=== PATIENT | female | born 1945 | race Caucasian/White ===

== ENCOUNTER 2023-12-28 19:42 | Inpatient (IN) | payer MEDICARE, BC, SELFPAY ==
[2023-12-28] VITALS (24 sets, daily range): BP systolic 65–180; BP diastolic 27–117
--- NOTE | 2023-12-28 18:51 | ED.CVA ---
History of Present Illness
General
Chief Complaint: CVA/TIA Symptoms
Time Seen by Provider: 12/28/23 18:50
Onset of Stroke Symptoms
Onset of symptoms known: Yes
Date of onset of symptoms: 12/28/23
Time of onset of symptoms: 18:10
Time pt last seen normal is known: Yes
Date last time pt seen normal: 12/28/23
Time last time pt seen normal: 18:00
History of Present Illness
History of Present Illness:
HPI: I spoke to EMS for history. At around 6:10 PM today while at some social function, the patient had a major change in mental status. There is concern for stroke. EMS was called and called a prehospital stroke alert.
EXAM:
GENERAL: The patient is critically ill in appearance
HEENT: Moist oral mucosa
CARDIOVASCULAR: No murmurs, normal heart rate, regular rhythm, No chest wall tenderness
PULMONARY: No respiratory distress, breath sounds are clear and equal
ABDOMEN: Soft with no peritoneal signs, no tenderness
NEUROLOGIC: Dense paresis on the right, does not follow any commands, has a leftward gaze preference, nonverbal, responds to pain
PSYCHIATRIC: The patient is nonverbal, eyes are slightly open, nonverbal
EXTREMITIES: No obvious deformity
SKIN: No rash, no lesions
TIME OF INITIAL ENCOUNTER: 6:52 PM
NUMBER AND COMPLEXITY OF PROBLEMS ADDRESSED AT THE ENCOUNTER
� Chronic conditions affecting care: Spinal stenosis, hyperlipidemia, diabetes
� Acute Exacerbation and/or Progression of Chronic Illness: This is an acute problem
� Differential Diagnosis includes: Acute ischemic CVA, hemorrhagic CVA
AMOUNT AND/OR COMPLEXITY OF DATA TO BE REVIEWED AND ANALYZED
� I performed an independent evaluation of and my interpretation is:
EKG: Sinus 56, no acute ST abnormality
CT: Noncontrast brain CT negative for bleed per Dr. Ivan
X-rays:
Laboratory Studies: White count 10.9, hemoglobin 13.6, fingerstick blood sugar 156, creatinine elevated at 1.5
Other:
� Review of other/old records: I reviewed records, the patient was here in 2018 after syncopal event with relatively unremarkable blood work, old records show that the patient has not been admitted to [facility] in the
past
� Clinical information was obtained by an independent historian: I spoke to EMS
� Prescriptions/Medications Considered but not given:
� Further testing considered but not performed:
RISK OF COMPLICATIONS AND/OR MORBIDITY OR MORTALITY OF PATIENT MANAGEMENT
� Social determinants of health affecting care: Apparently lives at home
� Discussion with other providers: Discussed with Dr. Montano over the phone at about 7:05 PM�we agreed to proceed with TNK; Dr. Rios for admission
� Escalation of care including admission/observation vs risk of discharge considered: The patient was seen as a stroke alert and immediately went to CT after brief evaluation. Initial NIHSS equals 20. Blood pressure was
markedly hypotensive while in CT with systolics in the 60s to 70s range. IV fluids were started. Repeat systolics around 100 as of 7:15 PM. Repeat neurologic examination unchanged. Reassessment at 7:20 PM, she was able to utter 'okay' very
softly and she seemed to have some movement to the toes on the right which is new compared to arrival. However dense deficits still persist. Planning TNK�nurse about to give as of 7:20 PM.
Past History
Past History
ED Past Medical History: HTN, Hypercholesterolemia, NIDDM and Other (colitis)
ED Past Surgical History: Cholecystectomy and
Social History
Tobacco: Non-smoker
Phy Exam
Physical Exam
Physical Exam:
See HPI
Scores
NIH Stroke Score
Level of Consciousness: 2 - Obtunded
LOC Questions: 2-Neither correct
LOC Commands: 2-Performs neither correctly
Best Horizontal Gaze: 2-Total gaze palsy
Visual Bacon: 0=Normal, no visual loss
Facial Palsy: 1=Minor paralysis
Motor - Right Arm: 4=No movement
Motor - Left Arm: 0=No drift 10 seconds
Motor - Right Le-No movement
Motor - Left Le-No drift 5 seconds
Limb Ataxia: 0-Absent
Sensation: 0-Normal
Best Language: 3-Mute/global aphasia
Dysarthria: 0-Normal
Extinction and Inattention: 0-No abnormality
Total Score:: 20
Course
Orders/Labs/Results
Orders:
Orders
12/28/23 18:48
CT Head/Neck Ang STROKE ALERT Urgent
Comment:
Reason For Exam: stroke/tia
12/28/23 18:49
CT Head W/o Cont STROKE ALERT Urgent
Comment:
Reason For Exam: stroke
12/28/23 18:51
Electrocardiogram (*1) Urgent
Reason for Study: TIA/Stroke
EKG- Treatment ONCE
12/28/23 18:54
CBC/With Diff [Complete Blood Count/With Diff] Urgent
Comprehensive Metabolic Panel Urgent
Protime/PTT Urgent
12/28/23 19:00
0.9% Sodium Chloride 1000 ml [Nss] 1,000 ml IV BOLUS
12/28/23 19:09
Tenecteplase [Tnkase] 18 mg Syringe [Syringe Non-Pump] 0 ml IV NOW
Provider explained risk/benefits to patient &/or: Other
caregiver?:
Comment: I attempted to call listed contact however there is no
answer. Patient cannot comprehend what is going on
right now. Implied emergent consent.
Blood pressure: 115/68
Abnormal Lab Results
12/28/23 12/28/23
18:50 18:54
WBC 10.9 H 10^3/uL
(4.8-10.8)
Absolute Neuts (auto) 7.0 H 10^3/uL
(1.4-6.5)
Absolute Monos (auto) 0.9 H 10^3/uL
(0.1-0.6)
Carbon Dioxide 21 L mmol/L
(22-30)
BUN 28 H mg/dl
(7-17)
Creatinine 1.5 H mg/dL
(0.6-1.0)
Glucose 148 H mg/dl
(70-99)
POC Glucose 156 H mg/dl
(70-99)
12/28/23 18:54
12/28/23 18:54
Vital Signs
Initial and Last Documented VS:
Initial Vital Signs
Pulse Resp BP Pulse Ox
61 20 115/68 89
12/28/23 18:51 12/28/23 18:51 12/28/23 18:51 12/28/23 18:51
Last Documented Vital Signs
Temp Pulse Resp BP Pulse Ox
98.8 F 67 18 100/40 97
12/28/23 19:10 12/28/23 19:10 12/28/23 19:10 12/28/23 19:13 12/28/23 19:13
*Critical Care Note
Total Time (30-74mins, 75-104mins- exclusive of procedures): 45 minutes
comment:
Patient was emergently assessed neurologically multiple times and decision was made to give TNK. I tried to call family but there was no answer. I spoke to EMS. I spoke to radiology. I spoke to neurology. There has been some slight improvement
just prior to TNK administration.
ED Attending Note
-
Portions of this chart may have been created with voice recognition software.� Occasional wrong word or��sound alike� substitutions may have occurred due to the inherent limitations of voice recognition software.
Discharge Plan
Departure
Patient Disposition: Admit
Date of Disposition: 12/28/23
Time of Disposition: 19:16
Presentation/result/management discussed w/ accepting MD/DO: Hospitalist
Discharge Problem:
Acute CVA (cerebrovascular accident)
Prescriptions:
No Action
metformin 500 MG tablet
500 mg PO BID
atorvastatin 10 MG tablet
10 mg PO QPM
lisinopril 20 MG tablet
20 mg PO DAILY
famotidine 20 MG tablet
40 mg PO DAILY
escitalopram oxalate 10 MG tablet
10 mg PO DAILY
Referrals:
UNKNOWN - PT NOT,INTERVIEWE [Family Provider] -
Interventions
Interventions:
*Risk Screen - Suicide Last Done: 12/28/23 19:15
*General Assessment Last Done: 12/28/23 19:14
*Neglect/Abuse Screening Last Done: 12/28/23 19:15
ED- Fall Risk Assessment Last Done: 12/28/23 19:10
*ED COVID-19 Vaccine History Last Done: 12/28/23 19:14
ED- Pulmonary Assessment Last Done: 12/28/23 19:10
ED- Neurological Assessment Last Done: 12/28/23 18:46
ED- Cardiac Assessment Last Done: 12/28/23 19:04
Discharge Date and Time
Print Language: LEBANESE
[2023-12-28 18:52] LABS: Glucose - Point of Care 156 mg/dl (70-99)
[2023-12-28 18:57] LABS: % Basophils 0.5 % (0-2); % Eosinophils 1.4 % (0-6); % Immature Granulocytes 0.3 % (0-0.5); % Lymphocytes 25.7 % (20.5-51.1); % Monocytes 8.4 % (1.7-9.3); % Neutrophils 63.7 % (42.2-75.2); Absolute Basophils 0.1 10^3/uL (0-0.2); Absolute Eosinophils 0.2 10^3/uL (0-0.7); Absolute Lymphocytes 2.8 10^3/uL (1.2-3.4); Absolute Monocytes 0.9 10^3/uL (0.1-0.6); Hematocrit 39.2 % (37.0-47.0); Hemoglobin 13.6 g/dL (12.0-16.0); Mean Corp Hgb Conc. 34.7 g/dL (33.0-37.0); Mean Corpuscular Hgb 30.4 pg (27.0-31.0); Mean Corpuscular Volume 87.7 fL (81.0-99.0); Mean Platelet Volume 9.2 fL (7.4-10.4); Nucleated Red Blood Cells % 0 %; Platelet Count 240 10^3/uL (130-400); Red Blood Cell Count 4.47 10^6/uL (4.20-5.40); Red Cell Dist. Width 12.3 % (11.5-14.5); White Blood Cell Count 10.9 10^3/uL (4.8-10.8)
[2023-12-28 19:07] LABS: INR 1.01; PT 13.1 Sec (11.4-14.6)
[2023-12-28 19:12] LABS: ALT (SGPT) 14 U/L (0-35); AST (SGOT) 23 U/L (14-36); Albumin 4.5 g/dl (3.5-5.0); Alkaline Phosphatase 81 U/L (38-126); Blood Urea Nitrogen 28 mg/dl (7-17); Calcium 10.2 mg/dl (8.4-10.2); Carbon Dioxide 21 mmol/L (22-30); Chloride 107 mmol/L (98-107); Glucose 148 mg/dl (70-99); Potassium 4.8 mmol/L (3.5-5.1); Sodium 135 mmol/L (135-145); Total Bilirubin 0.6 mg/dl (0.2-1.3); Total Protein 7.6 g/dl (6.3-8.2); eGFR 35.89
[2023-12-28] MEDS: TNKASE 3.60000000000000009 MG IV (19:19)
[2023-12-28] MEDS: NSS 1000 IV (19:20)
--- NOTE | 2023-12-28 19:20 | PHANOTE ---
Med Rec Note:
Family unable to be reached by provider, Home med list compiled from Dr Carvalho. Home med list left unconfirmed.
--- NOTE | 2023-12-28 19:31 | HPS.HSE ---
Addendum entered and electronically signed by Rodney Paez MD 12/28/23 23:27:
Patient condition discussed with cardiovascular team and Dr. Tong after the cath and intervention, attempted angioplasty eventually but open the left common carotid artery unable to stenting, also he mentioned she vomited few times, will monitor
for development aspiration pneumonia get a chest x-ray in the morning will hold off antibiotic as she develops symptoms of chest x-ray show evidence of infection
Closely monitoring for any further aspiration.
Original Note:
Family Physician
-
Family Physician: INTERVIEWE UNKNOWN - PT NOT
Chief Complaint
-
Mental status change
History of Present Illness
76-year-old female with history of diabetes and hypertension, dyslipidemia 47-year-old community independently prior to this, she was in the event for a community
Quite collapsed and became less responsive, EMS called and brought to the hospital where she was minimally responsive on ER eval noted she has a weakness in the right extremity, had a stat CT head did not show abnormality TNK was given per
recommendation of neurology with the ER physician, CTA head showed complete occlusion of the left internal carotid artery, intervention team contacted Dr. Tong came in and, initially ER tried to reassure the family nobody was answering but to son
came in and and they were fully informed about the patient condition and findings.
Patient given tPA 8 look like she is more awake and alert but still does not follows command and nonverbal look like she comprehending some of the discussion,
If you try to hold her like for she will keep it going
Look like the weakness in the right leg is much better, initial NIH score in the ER was around 20, get some improvement on weakness of the right leg and there is overall some improvement in her NIH score, she can be taken to [facility] for evaluation
of the complete occlusion of the left common carotid artery.
Medical History
Past Medical History
Past Medical History: Reports Other
Additional Past Medical History:
Past medical history Reviewed:
Hypertension
Diabetes
Dyslipidemia
Social history: Lives independently alone, no smoking alcohol use according to the son
Family history: Father had a stroke with history of diabetes and hypertension.
Past Surgical History: Reports Other
Social History
Tobacco: Other
Family History
Family History: Other
Allergies / Home Medications
Allergies reflects when Allergies were last updated in [facility].
Home Medications with original date entered in [facility]
Allergy/Medication List:
Allergies
Allergy/AdvReac Type Severity Reaction Status Date / Time
adhesive tape Allergy Unknown Rash Verified 01/14/18 19:57
ibuprofen Allergy Rash Verified 01/14/18 19:57
Penicillins Allergy Rash Verified 01/14/18 19:57
oxycodone [From Percocet] AdvReac Unknown Verified 01/14/18 19:57
food and environmental Allergy Unknown Uncoded 01/14/18 19:57
Home Medications
atorvastatin 10 mg tablet 10 mg PO QPM 01/14/18
escitalopram oxalate 10 mg tablet 10 mg PO DAILY 01/14/18
famotidine 20 mg tablet 40 mg PO DAILY 01/14/18
lisinopril 20 mg tablet 20 mg PO DAILY 01/14/18
metformin 500 mg tablet 500 mg PO BID 01/14/18
Review of Systems
-
Unable to obtain full review of systems at this time due to: Acuity
Physical Exam
Vital Signs
Vital Signs
Temp Pulse Resp BP Pulse Ox
98.8 F 67 18 100/40 97
12/28/23 19:10 12/28/23 19:10 12/28/23 19:10 12/28/23 19:13 12/28/23 19:13
Physical exam:
General: On my eval awake and alert, not responding to commands eyes open but attentive to verbal stimuli, , not in distress .
HEENT: No active discharge, ecchymosis or bruising, moist lips, tongue and mucous membrane.
Eyes: No discharge or red conjunctiva, no nystagmus, pupils are reactive and equal
Neck:Supple, no JVD no bruit no goiter.
Respiratory: Normal AP contour and diameter, normal chest wall movement, normal respiratory effort, no respiratory distress,
Lungs: Good air entry bilaterally, no wheezing or rhonchi, no rales or crackles
Heart: S1, S2 regular, normal rate, no added sound.
Gastrointestinal: Positive bowel sounds, soft, nontender, no guarding or rigidity or organomegaly
Musculoskeletal: , no chest wall abnormality or tenderness. no muscle tenderness or any joint swelling or tenderness.
Extremities: No pitting edema, good peripheral pulses, good range of motion
Skin: Warm and dry, no ulceration, normal color.
Neurological: Awake and alert, not responding comprehending command, good muscle tone and having some resistent right upper extremity with able to keep right lower extremity against gravity, same in the left extremity but she cannot follow recommend
have to lift it up for her, no facial droop, nonverbal, initial NIH score was 20 in the ER, clearly better on eval in ICU
Physical Exam
General: Other
Laboratory Results
-
12/28/23 18:54
12/28/23 18:54
Laboratory Results
PT 13.1 Sec (11.4-14.6) 12/28/23 18:54
INR 1.01 12/28/23 18:54
APTT 25.0 Sec (23.4-35.0) 12/28/23 18:54
Total Bilirubin 0.6 mg/dl (0.2-1.3) 12/28/23 18:54
AST 23 U/L (14-36) 12/28/23 18:54
ALT 14 U/L (0-35) 12/28/23 18:54
Alkaline Phosphatase 81 U/L (38-126) 12/28/23 18:54
EKG: Showed sinus bradycardia, rate around 56, MO 196, QTc 447 otherwise no acute abnormalities. Next
CT brain:
1. No definite acute process. No acute hemorrhage.
2. Mild decrease in attenuation in the deep and periventricular white matter. This may be slightly asymmetric on the left, nonspecific. MRI would be much more sensitive in this regard.
Head and neck CTA:
Significant vascular calcification of the aortic arch, significant vascular calcification at the carotid bifurcation bilaterally. There is no aortic dissection.
On the left there is occlusion of the left ICA at the bifurcation.
On the right there is at least 65% stenosis of the origin of the right ICA.
Minimal reconstitution of the left ICA at the cavernous sinus. Diminutive but present contrast enhancement of the proximal left MCA. Distal MCA is patent. No stenosis or filling defect identified in the left MCA.
The A1 segment is absent on the left. Patent anterior communicating artery. Patent bilateral KAYLEIGH, right MCA and bilateral CANDY DEPARTMENT MANAGER.
Data Reviewed
-
CT Scan: Image Personally Visualized and interpreted, Discussed with Physician, Discussed with Nurse and Discussed with Family
Medical Tests (Nuc Med, Echo, EKG etc): Image Personally Visualized and interpreted, Discussed with Physician and Discussed with Family
Lab Data: Labs Reviewed by me, Discussed with Physician, Discussed with Nurse and Discussed with Family
Old Records: Reviewed
Impression/Plan
-
IMPRESSION:
78-year-old female with history of hypertension, diabetes and dyslipidemia, brought in for evaluation of the sudden mental status change and weakness of the right side, concern for stroke specially with occlusion of the left common internal carotid
artery, cardiac TNK and on her way to the [facility] for evaluation of left, coronary artery occlusion.
Mental status change
Right-sided weakness
Acute stroke
Occlusion of the right, coronary artery
Diabetes
Hypertension
Dyslipidemia.
PLAN:
Status post TNK, follow the TNK protocol
Keep n.p.o. for now
IV fluid
Plan to go to [facility]
Need repeat imaging including MRI of brain when she is more stable with an event change, likely tomorrow
Check lipid panel, A1c
CBC and BMP
Glucose scan
Neurocheck
Hold all p.o. medication for now
Keep blood pressure on the high side
All discussed with the sons
Discussed with neurology, quiller operator nurses and IN STORE DEMONSTRATOR's
CODE STATUS was discussed with the 2 son they expressed her wish in the past she wanted no resuscitation Jeannine ever had a cardiac or pulmonary arrest
DVT prophylaxis for now SCD
--- NOTE | 2023-12-28 19:54 | CON.NEURO ---
Addendum entered and electronically signed by Shiva Montano MD 12/28/23 22:27:
IAT completed with result of successful opening and stenting of the L ICA.
The right ECA is absent.
Patient now able to produce some words and phrases. Unable to report location, own medical condition.
Spontaneously moves all ext.
Will follow.
Original Note:
Neuro Assessment/Plan
Assessment
Abrupt onset of acute ischemic stroke
Most likely due to left internal carotid artery occlusion
Plan
Recommendations:
� administer IV Tenecteplase (TNK) per protocol urgently while keeping patient's blood pressure to a goal of systolic less than 185 and diastolic less than 110 mmHg during infusion of TNK
� place the patient in medical ICU
� goal blood pressure over the next 24 hours would be less than 180/105 mmHg
� check MRI of the brain within 22-32 hours of TNK without contrast for localization of the stroke
� hold all antiplatelets, OAC meds, DOAC meds, heparinoids for next 24 hours
� check lipid panel and hemoglobin A1c
� start atorvastatin 80 mg at bedtime when patient is able to take PO
� goal blood glucose levels for patient would be less than 180 mg/dL
� Speech, PT, OT evaluations needed
� Physiatry consultation warranted
� DVT prophylaxis with sequential compression devices over next 24 hours, can be started on Enoxaparin subcutaneous for DVT prophylaxis beginning 24 hours after TNK provision.
� medical educational materials will be provided
patient candidate for intra-arterial thrombectomy based on L ICA occlusion seen by CT-angiogram
Total Critical Care Time= 120 minutes.
The neurological system is affected and the action required by me to prevent further deterioration or potential was control over the item listed first in the Impressions and Recommendations section of this note.
I was present and personally examined the patient. I discussed patient care with other professional health care providers.
Also discussed with family.
We will follow.
Consultation
Order
Date of Consultation: 12/28/23
Requesting Provider: ED Physician
Reason for Consult: Stroke Alert
Subjective/Objective
Subjective Data
Date of Service: December 28, 2023
Objective Data
Vital Signs
Temp Pulse Resp BP Pulse Ox
37.1 C 67 18 100/40 97
12/28/23 19:10 12/28/23 19:10 12/28/23 19:10 12/28/23 19:13 12/28/23 19:13
Lab Results
12/28/23 18:54
12/28/23 18:54
PT 13.1 Sec (11.4-14.6) 12/28/23 18:54
INR 1.01 12/28/23 18:54
APTT 25.0 Sec (23.4-35.0) 12/28/23 18:54
Sodium 135 mmol/L (135-145) 12/28/23 18:54
Potassium 4.8 mmol/L (3.5-5.1) 12/28/23 18:54
BUN 28 mg/dl (7-17) H 12/28/23 18:54
Glucose 148 mg/dl (70-99) H 12/28/23 18:54
Calcium 10.2 mg/dl (8.4-10.2) 12/28/23 18:54
Patient Allergies
adhesive tape Allergy (Unknown, Verified 01/14/18 19:57)
Rash
ibuprofen Allergy (Verified 01/14/18 19:57)
Rash
Penicillins Allergy (Verified 01/14/18 19:57)
Rash
oxycodone [From Percocet] Adverse Reaction (Verified 01/14/18 19:57)
Unknown
food and environmental Allergy (Uncoded 01/14/18 19:57)
Unknown
CVA Assessment
Onset of Stroke Symptoms
Date of onset of symptoms: 12/28/23
Time of onset of symptoms: 18:10
Time pt last seen normal is known: Yes
Date last time pt seen normal: 12/28/23
Time last time pt seen normal: 18:10
NIH Stroke Score
Level of Consciousness: 1 - Arousable
LOC Questions: 2-Neither correct
LOC Commands: 1-Performs one correctly
Best Horizontal Gaze: 0-Normal
Visual Bacon: 0=Normal, no visual loss
Facial Palsy: 0=Normal, symmetrical
Motor - Right Arm: 2=Partial vs. gravity
Motor - Left Arm: 0=No drift 10 seconds
Motor - Right Le-No drift 5 seconds
Motor - Left Le-No drift 5 seconds
Limb Ataxia: 0-Absent
Sensation: 0-Normal
Best Language: 2-Severe aphasia
Dysarthria: 0-Normal
Extinction and Inattention: 0-No abnormality
Total Score:: 8
Tenecteplase Contraindications
Inclusion and Exclusion criteria reviewed: Yes
Review of Systems
-
Unable to obtain full review of systems at this time due to: Aphasia
History Source: Patient
All other systems: Reviewed and negative
Physical Exam
-
General: No Apparent Distress and Appears Stated Age
Eyes: Round OU, [place] Conjunctivae and No Ptosis
HEENT: Anicteric and Moist Mucous Membranes
Neck: Full Range of Motion
Respiratory: No Dyspnea
Cardiac: No JVD
GI: Non-distended
Skin: Unremarkable
Extremities: No Clubbing, No Cyanosis and No Edema
Psych: Unable to Assess
Extended Neurological Exam
Mood & Affect: Unable to Assess
Attention Span & Concentration: Awake, Alert, Interactive, Unable to Perform 2 Step Request and Other (severe difficulty with 1-step requests, doesn't perform 50% of 1-step requests)
Memory: Unable to Assess
Tremor: Hand Tremor Absent and Head Tremor Absent
Involuntary Movement: None
Speech: Mute
Cranial Nerve II: Left Eye: Pupillary Reactivity Unremarkable, Pupillary Size Unremarkable and Visual Bacon Grossly Intact
Cranial Nerve II: Right Eye: Pupillary Reactivity Unremarkable, Pupillary Size Unremarkable and Visual Bacon Grossly Intact
Cranial Nerves III, IV, : Extraocular Movement: Grossly Intact and Other (no gaze preference)
Cranial Nerve VII: Facial Symmetry: Reduced (questionably on the right)
Cranial Nerve VIII: Hearing: Unremarkable Hearing to Normal Conversational Volume
Cranial Nerves IX, X: Palate Movement: Unable to Assess
Cranial Nerve XI: Shoulder Shrug: Unremarkable
Cranial Nerve XII: Tongue Protusion: Unable to Assess
Muscle Bulk & Tone: Bulk Unremarkable and Increased Tone (RUE proximally)
Deep Tendon Reflexes: Unremarkable Throughout
Cold Sensation: Unable to Assess
Vibration Sensation: Unable to Assess
Touch Sensation: Unremarkable
Coordination: Unable to Assess
Babinski Sign: Absent Bilaterally
Gait & Station: Unable to Assess
Data Reviewed
-
CT-A: Report Reviewed and Image Reviewed
CT Head: Image Reviewed
Labs: Report Reviewed
Reviewed with: Physician, Nurse and Family
Old Records: Summarized
Medications
-
Home Medications
�Medication �Instructions �Recorded
atorvastatin 10 mg tablet 10 mg PO QPM 01/14/18
escitalopram oxalate 10 mg tablet 10 mg PO DAILY 01/14/18
famotidine 20 mg tablet 40 mg PO DAILY 01/14/18
lisinopril 20 mg tablet 20 mg PO DAILY 01/14/18
metformin 500 mg tablet 500 mg PO BID 01/14/18
Past History
Past History
ED Past Medical History: CVA, HTN, Hypercholesterolemia, NIDDM, Psychiatric and Other (colitis)
ED Past Surgical History: Cholecystectomy, and Orthopedic (cervical fusion)
Social History
Tobacco: Non-smoker
--- NOTE | 2023-12-28 20:48 | PTCARENOTE ---
Addendum entered by Alison Martinez RN 12/28/23 21:01:
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
Original Note:
Received patient from ED RN, NIHSS completed together at bedside, score was 14. Neurologist, hospitalist and wind farm engineer all at bedside, spoke with patients family and decided on a IAT at this time. Pt was transferred downstairs via bed to cath
lab, VSS, BP elevated at that time. No signs of bleeding at this time. pt appeared comfortable.
[2023-12-28 20:54] LABS: ACT-LR - POC 189 Seconds (116-155)
[2023-12-28 21:02] LABS: ACT-LR - POC 181 Seconds (116-155)
[2023-12-28 21:11] LABS: ACT-LR - POC 186 Seconds (116-155)
[2023-12-28 21:20] LABS: ACT-LR - POC 256 Seconds (116-155)
[2023-12-28 21:36] LABS: Erythrocyte Sed Rate 20 mm/hour (0-20)
[2023-12-28 21:40] LABS: ACT-LR - POC 265 Seconds (116-155)
[2023-12-28 21:42] LABS: HDL Cholesterol 41 mg/dl; LDL Cholesterol, Calculated 57 mg/dl; Total Cholesterol 125 mg/dl (50-199); Triglyceride 136 mg/dl (10-149); Very Low Density Lipoprotein 27 mg/dl (0-30)
[2023-12-28 22:14] LABS: TSH Reflex To Free T4 3.42 uIU/ml (0.47-4.68)
--- NOTE | 2023-12-28 22:29 | ITS.CL.CA ---
[facility] - Carotid Angiography
Carotid Angiography
Procedure Report:
CAROTID ANGIOGRAPHY AND CAROTID STENT REPORT
Date: December 28, 2023
Referring: Dr. Shiva Montano
INDICATIONS: This is a 78-year-old female with a past medical history notable for diabetes, hypertension, and hyperlipidemia. She lives independently in a [place]-year-old and above community and was at an event earlier this evening when she experienced
sudden loss of consciousness collapsing to the floor. EMS brought her to [facility] where a stat CT scan was performed. She was noted to have right hemiparesis and TNK was administered at the recommendation of neurology. CT angiography
was notable for complete occlusion and heavy calcification of the left internal carotid artery and at least moderate right internal carotid artery stenosis. The angiograms were reviewed with radiology and it appeared that the left MCA was filling
via collaterals. Given the sudden onset of symptoms and dense hemiparesis and aphasia the decision was made to refer for emergent angiography and possible carotid intervention.
PROCEDURE:
1. Ultrasound-guided right common femoral arterial access with placement of a 5 Singaporean arterial sheath
2. Right common carotid angiography and intracerebral angiography from the right common carotid
3. Left common carotid angiography
4. Successful stenting of the proximal left internal carotid artery using a 9 x 30 mm Precise stent that was postdilated with a 5 mm noncompliant balloon
PROCEDURAL DETAILS: Arterial access was obtained using ultrasound guidance. A significant amount of plaque was seen in the common femoral/profundus/SFA. A 5 Singaporean sheath was inserted. Angiography revealed appropriate positioning of the
arteriotomy for upsizing to a 7 Singaporean sheath if needed. A 5 Singaporean VTK catheter was advanced over a J-wire and cannulated the right common carotid artery.
RIGHT CAROTID ARTERY: The right common carotid artery was found to be widely patent. The carotid bulb/bifurcation was found to be heavily calcified with at least a 50-60% stenosis in the proximal right internal carotid artery involving the carotid
artery. The right external carotid artery was felt to be occluded. The intracerebral portion of the right internal carotid artery was patent terminating in the KAYLEIGH and MCA. Faint collaterals were noted to fill the left MCA
LEFT CAROTID ARTERY: The left common carotid artery was selectively cannulated with an CATHERINE catheter. Angiography of the left common carotid artery demonstrated the proximal and mid vessel were widely patent, however, there was a heavily calcified
eccentric high-grade distal common carotid stenosis involving the carotid bifurcation and origin of the external carotid artery. The left internal carotid artery was found to be 100% occluded at its origin.
LEFT CAROTID ARTERY STENT: Intravenous heparin was administered judiciously in order to keep an ACT around 250 seconds. A 0.035 inch hydrophilic Splashwire was advanced into the external carotid artery and the CATHERINE catheter was advanced distally
into the common carotid artery. A 0.035 inch Supra Core wire was then advanced through the CATHERINE catheter which was removed over the supportive wire. The 5 [place]an right common femoral sheath was removed and exchanged for a 7 Singaporean Shuttle sheath
which was advanced to the distal left common carotid artery.
A 0.014 inch BMW guidewire was advanced through the shuttle sheath and was advanced across the high-grade calcific stenosis in the proximal internal carotid artery and the tip of the wire was advanced to the horizontal C2-C3 segment. We attempted
to place a 6 mm SpiderEZ filter wire into the ICA for distal protection during stent deployment. Unfortunately, the Spider Filter would not cross the residual heavily calcified stenosis in the proximal internal carotid artery. The decision was
made to proceed with predilation using a 1.5 mm Euphora balloon. Even the small Euphora balloon encountered difficulty trying to cross the stenotic segment. The 1.5 mm Euphora balloon crossed with a significant degree of difficulty and ruptured
during balloon inflation. The Spider-EZ Filter would still not cross. Serial balloon dilations of the distal common carotid/proximal internal carotid stenosis were performed using 2.5 x 20 mm Trek and a 3.0 x 20 mm NC Euphora balloons.
Ultimately, we are able to advance the Spider-EZ Filter wire distally. The BMW wire was removed and the filter basket deployed.
We attempted to cross the lesion with a 9 x 30 mm Precise stent. Unfortunately, the Precise stent would not cross even with aggressive guide support and pressure on the delivery system. The distal common carotid and internal carotid artery was
re-dilated using a 3.5 x 20 mm NC Euphora balloon. Atropine and Sim-Synephrine were administered for hypotension during balloon inflations as needed. Eventually, we started dobutamine at 5 mcg/kg/min and quickly titrated to 10 mcg/kg/min.
We again tried to cross the stenotic segment with the Precise stent which unfortunately would not cross and was again removed from the body. We predilated with a 4.0 x 20 mm Trek balloon that was inflated to 14 hermelindo. The balloon appeared
well-expanded and the Shuttle Sheath was advanced to the distal common carotid artery and into the calcified stenosis as the 4.0 mm balloon was deflating. The 9 x 30 mm Precise stent was readvanced and still encountered a significant amount of
difficulty while trying to cross the residual stenosis. Multiple attempts were required but the Precise stent eventually crossed the stenosis. The stent was unsheathed and post dilated with a 5.0 mm NC balloon to 14 atmospheres.
Angiography was performed and confirmed flow through the Spider Filter which was then retrieved. Angiography at the conclusion of the interventional procedure revealed the stent was well opposed. The intracerebral portion of the internal carotid
artery was widely patent filling the MCA. The left KAYLEIGH was noted to be occluded.
Of note: The patient became nauseated and vomited near the conclusion of the procedure. It is unclear if she aspirated.
RADIATION SUMMARY: Fluoro Time (min): 39.3, Dose (mGy): 497, DAP (Gy.cm2) : 81
Conclusion:
1. Complex with successful stenting of 100% occluded left internal carotid artery with distal protection using a Spider EZ filter wire. The carotid was stented with a 9 x 30 mm Precise stent and postdilated with a 5.0 mm noncompliant balloon
2. Stenosis of the right internal carotid artery estimated at least 50-60% on the single view obtained
Recommendations:
1. Patient will receive 300 mg of rectal aspirin tonight as well as 81 mg of aspirin daily starting on 12/29/2023
2. Clopidogrel 300 mg on 12/29/2023 and 75 mg daily starting on 12/30/2023
3. The right common femoral sheath was left in position and upsized to 8 Singaporean given concern of significant vascular disease in the right common femoral artery. The sheath will be placed on a pressure bag and will be removed in am.
Copy to: Dr. Lucas Tineo (last seen 2018)
--- NOTE | 2023-12-28 22:45 | PTCARENOTE ---
Received pr from oil field laborer RN, pt is awake, able to follow simple commands, NIHSS was a 4, completed with oil field laborer RN. Sheath remains in place, transduced, and pt remains on 5mcg of dopamine at this time.
[2023-12-28 22:50] LABS: Folate 16.1 ng/ml (2.76-20); Vitamin B12 301 pg/ml (239-931)
[2023-12-28] MEDS: ASPIRIN 300 MG RECTAL (23:40)
[2023-12-29] VITALS (90 sets, daily range): BP systolic 68–163; BP diastolic 31–84; BMI 27.3
[2023-12-29 00:23] LABS: Glucose - Point of Care 193 mg/dl (70-99)
[2023-12-29] MEDS: NOVOLOG FLEXPEN-LOW RESISTANCE 1 UNITS SC ×3 (00:48→18:01)
--- NOTE | 2023-12-29 00:58 | PTCARENOTE ---
Patient began wrenching, nurse log rolled pt to her side where she vomited x1. VSS at this time. Kierra VERMA notified. Pt also shivering, Temperature 97.8. No overt signs of bleeding, Right Sheath site with minimal bleeding at site after vomiting.
--- NOTE | 2023-12-29 01:00 | W.PN.UPDATE ---
Update Note
Progress Note Update
12/29/23
0045- Patient had episode of vomiting, had similar episodes of vomiting during IAT procedure. SBP maintained with dopamine goal 120-140s. Patient stated yes to slight headache, neurological examination improving overall and able to mumble some
words but does have expressive aphasia. Dr. Montano, neurologist updated, and will order zofran prn for nausea.
[2023-12-29] MEDS: ZOFRAN 4 MG IV ×2 (01:05→13:35)
--- NOTE | 2023-12-29 01:08 | PTCARENOTE ---
PRN Zofran giving for nausea.
[2023-12-29 04:16] LABS: Hematocrit 34.1 % (37.0-47.0); Hemoglobin 11.9 g/dL (12.0-16.0); Mean Corp Hgb Conc. 34.9 g/dL (33.0-37.0); Mean Corpuscular Hgb 30.3 pg (27.0-31.0); Mean Corpuscular Volume 86.8 fL (81.0-99.0); Platelet Count 225 10^3/uL (130-400); Red Blood Cell Count 3.93 10^6/uL (4.20-5.40); Red Cell Dist. Width 12.1 % (11.5-14.5); White Blood Cell Count 15.2 10^3/uL (4.8-10.8)
[2023-12-29 04:28] LABS: APTT 29.4 Sec (23.4-35.0)
[2023-12-29 05:09] LABS: Blood Urea Nitrogen 29 mg/dl (7-17); Calcium 9.7 mg/dl (8.4-10.2); Carbon Dioxide 17 mmol/L (22-30); Chloride 111 mmol/L (98-107); Glucose 165 mg/dl (70-99); HDL Cholesterol 43 mg/dl; LDL Cholesterol, Calculated 45 mg/dl; Magnesium 1.8 mg/dl (1.6-2.3); Phosphorus 3.7 mg/dl (2.5-4.5); Potassium 4.9 mmol/L (3.5-5.1); Sodium 137 mmol/L (135-145); Total Cholesterol 105 mg/dl (50-199); Triglyceride 88 mg/dl (10-149); Very Low Density Lipoprotein 17 mg/dl (0-30); eGFR 52.08
[2023-12-29] MEDS: DOPamine 400 MG 250 IV ×2 (05:49→16:57)
[2023-12-29 06:27] LABS: Glucose - Point of Care 179 mg/dl (70-99)
--- NOTE | 2023-12-29 08:05 | PTCARENOTE ---
Rec'd pt at 0700, handoff done at bedside with nightshift RN. NIHSS completed. Pt with some garbled speech, noted that pt was closing left eye when reading. When questioned, pt stated she did have a hard time seeing from that eye. +Right field cut
to left eye, Dr. Montano aware. Monitor SBR. Dopamine gtts to keep SBP 120-140's per Neuro. Lungs CTA, pox 97% 3LNC. +BS, abd soft/nt. Purewick in place, incont for oliver urine.
--- NOTE | 2023-12-29 08:30 | W.PN.HOSP.TC ---
Today's Communication/Plan
-
see A/P
Assessment / Plan
Assessment / Plan
HPI: 76-year-old female with history of diabetes, hypertension, dyslipidemia, p/w collapse, decreased level of consciousness with weakness of the right side at a community event.
She was noted to be weaker in the right extremity.
Her stat CT head did not show abnormality so TNK was given per recommendation of neurology with the ER physician.
Her CTA head showed complete occlusion of the left internal carotid artery. She was taken straight to the nursery laborer and had successful stenting of the proximal left internal carotid artery by Dr. Tong.
A/P:
# Acute metabolic encephalopathy with Right-sided weakness due to Acute stroke
s/p TNK on admission, monitor in ICU
Check MRI brain
LDL 45
start atorvastatin and would use 40 mg for now given LDL at 45
A1C pending
SPL eval
PT/ OT eval as needed
Would need Physiatry consult when medically more stable
DVT prophylaxis with SCD
Neuro on board
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
s/p stent placement of L internal carotid artery on admission
cont DAPT ASA/plavix per Dr Tong
Cont current dopamine drip for BP support
# Incidental finding of a 9 mm nodule in the left upper lobe from CT angio
I recommend outpt follow-up with chest CT with contrast when more medically stable, family informed
# Occlusion of the right coronary artery
# Diabetes
# Hypertension
# Dyslipidemia.
d/w sons and daughter at bedside
CODE STATUS was discussed with the 2 sons, DNR DNI
DVT prophylaxis: SCD for now
total time spent 51 min
Anticipated Discharge: > 48 hours
Subjective/Interval History
-
Date of Service: December 29, 2023
Objective Data
-
Labs:
Laboratory Results
12/29/23
04:06
WBC 15.2 H
Hgb 11.9 L
Hct 34.1 L
Plt Count 225
PT 14.0
INR 1.10
APTT 29.4
Sodium 137
Potassium 4.9
Chloride 111 H
Carbon Dioxide 17 L
BUN 29 H
Creatinine 1.1 H
Glucose 165 H
Calcium 9.7
Vital Signs:
Vital Signs
Temp Pulse Resp BP Pulse Ox
36.7 C 59 17 157/39 97
12/29/23 07:30 12/29/23 08:20 12/29/23 08:20 12/29/23 08:19 12/29/23 08:20
I&O
12/28/23 12/29/23 12/30/23
06:59 06:59 06:59
Intake Total 160.2 / 184.2
Balance 160.2 / 184.2
Review of Systems
-
All other systems: Reviewed and negative
Physical Exam
-
General: Well Developed, Well Nourished, Comfortable and Conversant
HEENT: Normocephalic, Atraumatic, Nose Appears Normal, Ears Appear Normal and Oxygen (3L NC)
Respiratory: Clear to Auscultation and Non Labored Respirations; Negative Accessory Resp Muscle Use
Cardiac: Regular Rhythm and S1/S2
GI: Soft, Nontender, Nondistended and Normal Bowel Sounds
Skin: Warm and Dry
Neuro: Awake, Alert and Other (R arm clumsy, unable to assess R leg as it is with restraint)
Psych: Calm and Intact Judgement/Insight
Data Reviewed
-
CT Scan: Report Reviewed by me
Labs: Labs Reviewed by me
[2023-12-29 08:46] LABS: Glycohemoglobin (HgbA1c) 6.4 % (4.0-5.6)
--- NOTE | 2023-12-29 08:57 | PTOTSP ---
Orders received, chart reviewed. Patient received TNK on 12/28/23 at 1909. As per protocol; will hold PT evaluation for 24 hrs.
Will follow patient on 12/29/23 for PT evaluation.
--- NOTE | 2023-12-29 09:44 | W.PN.NEURO.1 ---
Today's Communication / Plan
-
� goal blood pressure over the next 24 hours would be less than 180/105 mmHg, preferably systolic blood pressure approximately 140 until after 24 hours at which time patient may have normotension as a goal
� check MRI of the brain within 22-32 hours of TNK without contrast for localization of the stroke
� Okay to provide aspirin followed by combination of aspirin and clopidogrel due to recent stenting
Continue atorvastatin, would not advance further based on the patient's current cholesterol and LDL levels
Neuro Assessment/Plan
Assessment
Abrupt onset of acute ischemic stroke
Most likely due to left internal carotid artery occlusion. Patient completed both tenecteplase and stenting successfully
Plan
Recommendations:
� goal blood pressure over the next 24 hours would be less than 180/105 mmHg, preferably systolic blood pressure approximately 140 until after 24 hours at which time patient may have normotension as a goal
� check MRI of the brain within 22-32 hours of TNK without contrast for localization of the stroke
� Okay to provide aspirin followed by combination of aspirin and clopidogrel due to recent stenting
Continue atorvastatin, would not advance further based on the patient's current cholesterol and LDL levels
� goal blood glucose levels for patient would be less than 180 mg/dL
� Speech, PT, OT evaluations needed
� DVT prophylaxis with sequential compression devices over next 24 hours, can be started on Enoxaparin subcutaneous for DVT prophylaxis beginning 24 hours after TNK provision.
� medical educational materials will be provided
We will follow.
Subjective/Objective
Subjective Data
Date of Service: December 29, 2023
Patient unable provide her own medical history
Objective Data
Vital Signs
Temp Pulse Resp BP Pulse Ox
36.7 C 58 19 138/33 97
12/29/23 07:30 12/29/23 09:30 12/29/23 09:30 12/29/23 09:19 12/29/23 09:30
Lab Results
12/29/23 04:06
12/29/23 04:06
PT 14.0 Sec (11.4-14.6) 12/29/23 04:06
INR 1.10 12/29/23 04:06
APTT 29.4 Sec (23.4-35.0) 12/29/23 04:06
Sodium 137 mmol/L (135-145) 12/29/23 04:06
Potassium 4.9 mmol/L (3.5-5.1) 12/29/23 04:06
BUN 29 mg/dl (7-17) H 12/29/23 04:06
Glucose 165 mg/dl (70-99) H 12/29/23 04:06
Calcium 9.7 mg/dl (8.4-10.2) 12/29/23 04:06
Phosphorus 3.7 mg/dl (2.5-4.5) 12/29/23 04:06
LDL Cholesterol, Calc 45 mg/dl 12/29/23 04:06
Vitamin B12 301 pg/ml (239-931) 12/28/23 18:54
Patient Allergies
adhesive tape Allergy (Unknown, Verified 01/14/18 19:57)
Rash
ibuprofen Allergy (Verified 01/14/18 19:57)
Rash
Penicillins Allergy (Verified 01/14/18 19:57)
Rash
oxycodone [From Percocet] Adverse Reaction (Verified 01/14/18 19:57)
Unknown
food and environmental Allergy (Uncoded 01/14/18 19:57)
Unknown
Review of Systems
-
Unable to obtain full review of systems at this time due to: Aphasia
History Source: Patient
All other systems: Reviewed and negative
Physical Exam
-
General: No Apparent Distress and Appears Stated Age
Eyes: Round OU, [place] Conjunctivae and No Ptosis
HEENT: Anicteric and Moist Mucous Membranes
Neck: Full Range of Motion
Respiratory: No Dyspnea
Cardiac: No JVD
GI: Non-distended
Skin: Unremarkable
Extremities: No Clubbing, No Cyanosis and No Edema
Psych: Unable to Assess
Extended Neurological Exam
Mood & Affect: Unable to Assess
Attention Span & Concentration: Awake, Alert, Interactive, Moderate Difficulty with 2 Step Request and Other
Memory: Unable to Assess
Tremor: Hand Tremor Absent and Head Tremor Absent
Involuntary Movement: None
Speech: Other (Unable to produce her own name; very few words output. Words are appropriate)
Cranial Nerve II: Left Eye: Pupillary Size Unremarkable and Visual Bacon Grossly Intact
Cranial Nerve II: Right Eye: Pupillary Size Unremarkable and Visual Bacon Grossly Intact
Cranial Nerves III, IV, : Extraocular Movement: Grossly Intact and Other (no gaze preference)
Cranial Nerve VII: Facial Symmetry: Reduced (questionably on the right)
Cranial Nerve VIII: Hearing: Unremarkable Hearing to Normal Conversational Volume
Cranial Nerve XII: Tongue Protusion: Unable to Assess
Muscle Bulk & Tone: Bulk Unremarkable
Cold Sensation: Unable to Assess
Vibration Sensation: Unable to Assess
Touch Sensation: Unremarkable
Coordination: Unable to Assess
Gait & Station: Unable to Assess
Past History
Past History
ED Past Medical History: CVA, HTN, Hypercholesterolemia, NIDDM, Psychiatric and Other (colitis)
ED Past Surgical History: Cholecystectomy, and Orthopedic (cervical fusion)
Social History
Tobacco: Non-smoker
Medications
-
Medications:
Generic Name Dose Route Start Last Admin
Trade Name Freq PRN Reason Stop Dose Admin
Acetaminophen 650 mg 12/28/23 20:45
Acetaminophen 325 Mg Tablet PO 01/25/24 20:44
Q4HPRN PRN
TAMEZ, mild pain, or temp >100.4F
Aspirin 81 mg 12/29/23 08:00
Aspirin 81 Mg Chewable Tablet PO 01/26/24 07:59
DAILY FRIEDA
Atorvastatin Calcium 40 mg 12/29/23 18:00
Atorvastatin (Lipitor) 40 Mg Tablet PO 01/26/24 17:59
QPM FRIEDA
Clopidogrel Bisulfate 75 mg 12/30/23 08:00
Clopidogrel 75 Mg Tablet PO 01/27/24 07:59
DAILY FRIEDA
Dextrose 12.5 grams 12/28/23 20:45
Dextrose 50% (0.5 Grams/Ml) 50 Ml Syringe IV 01/25/24 20:44
Q45CIDY PRN
hypoglycemia
Protocol
Glucagon 1 mg 12/28/23 20:45
Glucagon 1 Mg Vial IM 01/25/24 20:44
PRN PRN
hypoglycemia
Protocol
Hydralazine HCl 10 mg 12/28/23 20:45
Hydralazine 20 Mg/Ml Vial IV 01/25/24 20:44
Q4HPRN PRN
BP > 180/105 mmHg
Dopamine HCl/Dextrose 400 mg in 250 mls @ 0 mls/hr 12/28/23 23:45 12/29/23 05:49
Dopamine 400 Mg IV 250 mls
PER PROTOCOL FRIEDA Administration
Protocol
Per Protocol
Insulin Aspart 0 units 12/29/23 00:00 12/29/23 06:42
Insulin Aspart Low Resistance 300 Units/3 Ml Pen.Injctr SC 01/26/24 00:00 1 units
Q6 FRIEDA Administration
Protocol
Ondansetron HCl 4 mg 12/29/23 00:53 12/29/23 01:05
Ondansetron 4 Mg/2 Ml Vial IV 01/26/24 00:52 4 mg
Q6HPRN PRN Administration
NAUSEA/VOMITING
Sodium Chloride 0 flush 12/28/23 21:00
Sodium Chloride 0.9% (Flush) Syringe IV 01/25/24 20:59
PER PROTOCOL FRIEDA
--- NOTE | 2023-12-29 10:27 | W.PN.UPDATE ---
Update Note
Progress Note Update
Requested by Dy. Tong to remove right femoral sheath. Area cleansed, suture removed and #8F right femoral artery sheath removed without difficulty. Manual pressure x 15 minutes with hemostasis achieved. No bleeding/hematoma at puncture site..
--- NOTE | 2023-12-29 11:43 | CON.INTV ---
Consultation
Consultation Request
Date/Time Consultation Requested: 12/29/2023
Date/Time Consultation Performed: 12/29/2023
Requesting Provider: Dr. Paez
Performing Provider: Dr. Quan Gerber
Reason for Consultation: Acute CVA
Medical History
-
History of Present Illness:
76-year-old woman with history of diabetes, hypertension, hyperlipidemia brought to the emergency room after developing collapse. Upon EMS arrival patient was minimally responsive. She was noted to have right hemiparesis. Patient evaluated for
acute CVA in the emergency room, CT head showed no evidence for bleeding, patient received tenecteplase. Subsequently CT angiogram demonstrated large vessel occlusion of the left internal carotid artery. Immediately transferred to the
catheterization lab and she underwent intra-arterial thrombectomy.
Patient then transferred to the critical care unit for further care.
It is noted that the patient has few episodes of emesis in the emergency room and the Front End Engineer as well.
No further vomiting.
Denies any headache.
Past Medical History
Past Medical History: Other (See assessment and plan section)
Social History
Tobacco: Non-smoker
Alcohol: None
Family History
Family History: Unable to Obtain
Allergies / Home Medications
Allergies
Allergy/AdvReac Type Severity Reaction Status Date / Time
adhesive tape Allergy Unknown Rash Verified 01/14/18 19:57
ibuprofen Allergy Rash Verified 01/14/18 19:57
Penicillins Allergy Rash Verified 01/14/18 19:57
oxycodone [From Percocet] AdvReac Unknown Verified 01/14/18 19:57
food and environmental Allergy Unknown Uncoded 01/14/18 19:57
Home Medications
�Medication �Instructions �Recorded �Confirmed �Last Taken �Type
atorvastatin 10 mg tablet 10 mg PO QPM High Cholesterol 01/14/18 01/14/18 01/13/18 History
escitalopram oxalate 10 mg tablet 10 mg PO DAILY Mental 01/14/18 01/14/18 01/14/18 History
Health/Anxiety
famotidine 20 mg tablet 40 mg PO DAILY Gastrointestinal 01/14/18 01/14/18 01/14/18 History
Issue
lisinopril 20 mg tablet 20 mg PO DAILY Blood Pressure 01/14/18 01/14/18 01/14/18 History
metformin 500 mg tablet 500 mg PO BID Diabetes 01/14/18 01/14/18 01/14/18 History
Review of Systems
-
Unable to Obtain full review of systems at this time due to: Acuity
Vitals / Labs / Diagnostic Testing
Vital Signs
Temp Pulse Resp BP Pulse Ox
98.1 F 56 19 130/38 98
12/29/23 07:30 12/29/23 11:10 12/29/23 11:10 12/29/23 11:00 12/29/23 11:10
Lab Data
12/29/23 04:06
12/29/23 04:06
Laboratory Results
12/28/23 12/29/23
18:54 04:06
PT 13.1 14.0
INR 1.01 1.10
APTT 25.0 29.4
Diagnostic Testing:
Physical Exam
-
HEENT: Normocephalic
Cardiovascular: S1/S2
Respiratory: Clear and Non-Labored Respirations
GI: Soft and Non Distended
Neurology: Awake, Alert, Other (Follows commands.) and Other (Right hemiparesis)
Skin: Warm
General: Comfortable
Assessment
-
78-year-old woman with history of hypertension, diabetes who usually is very active. Brought in by EMS after having collapse. Found to be obtunded in the emergency room. Right hemiparesis was noted. CT head was negative and she was treated for
acute CVA. Tenecteplase was given. She was found to have 100% occlusion of the left common internal carotid artery. Underwent stent placement on IAT 12/28/2023
Acute CVA: Right hemiparesis-status post tenecteplase 12/28/2023
100 % Occlusion of the left common internal carotid artery: Status post intra-arterial thrombectomy/stent placement
Catheterization report:
1. Complex with successful stenting of 100% occluded left internal carotid artery with distal protection using a Spider EZ filter wire. The carotid was stented with a 9 x 30 mm Precise stent and postdilated with a 5.0 mm noncompliant balloon
2. Stenosis of the right internal carotid artery estimated at least 50-60% on the single view obtained
Vomiting
Incidental lung nodule 9 mm in the left upper lobe
Conditions present prior admission:
Hypertension
Type 2 diabetes
Dyslipidemia
Assessment and plan:
Hemodynamic monitoring post tenecteplase.
Continues to have right-sided hemiparesthesia and some dysarthria. Following commands. Strength improved compared to admission.
Currently no evidence for bleeding.
Continue with frequent neurological checks
Eventual MRI
Antiplatelets after intervention.
Hold any anticoagulants post tenecteplase
Statins
eventual echocardiogram
-
Continue hemodynamic monitoring: Goal blood pressure in the first 24 hours would be less than 180/105 mmHg. After that goal will be normotensive.
Blood pressure augmentation with dopamine.
Right groin incision without hematoma.
-
Acute kidney injury on admission, resolving
-
Vomiting on admission: So far no evidence for aspiration.
Chest x-ray 12/29/2023 without infiltrates.
Not requiring supplemental oxygen
Afebrile/Leukocytosis noted per
Continue to follow
-
Blood sugar control, goal 140-180 per
Insulin will be provided as needed
-
Speech evaluation and an eventual physiatry consultation
PT/OT
-
DVT prophylaxis with SCDs
-
continue ICU monitoring per protocol.
-
Dr. Gerber updated family at the bedside
-
Critical care statement: A total of 31 minutes of critical care time was provided for this patient today. This includes management of unstable vital signs, evaluation of the patient at bedside, reviewing the patient's pertinent medical records
including ventilator settings, arterial blood gases, radiographs, microbiology, laboratory evaluations and discussion with primary team, critical care nursing, and respiratory therapy.

Imaging reviewed:
CT brain:
1. No definite acute process. No acute hemorrhage.
2. Mild decrease in attenuation in the deep and periventricular white matter. This may be slightly asymmetric on the left, nonspecific. MRI would be much more sensitive in this regard.
Head and neck CTA:
Significant vascular calcification of the aortic arch, significant vascular calcification at the carotid bifurcation bilaterally. There is no aortic dissection.
On the left there is occlusion of the left ICA at the bifurcation.
On the right there is at least 65% stenosis of the origin of the right ICA.
Minimal reconstitution of the left ICA at the cavernous sinus. Diminutive but present contrast enhancement of the proximal left MCA. Distal MCA is patent. No stenosis or filling defect identified in the left MCA.
The A1 segment is absent on the left. Patent anterior communicating artery. 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
[2023-12-29] MEDS: PLAVIX 300 MG PO (12:26)
[2023-12-29] MEDS: LOW STRENGTH ASPIRIN 81 MG PO (12:26)
--- NOTE | 2023-12-29 13:05 | PTOTSP ---
Speech Therapy
Presentation: Patient's speech and language appeared to be WNL but short in utterance length. Patient was partially oriented and appeared to be fatigued.
Swallowing Function: INVISIBLE BRACES ORTHODONTIST observed patient with several bites of puree, mechanical soft solids, and advanced mechanical soft solids in addition to several sips of thin liquids (straw) in which patient appeared to tolerate as she did not exhibit any
overt clinical s/sx of aspiration. However, patient's PO intake of IDDSI Level 5 and 6 were limited due to patient's distaste, fatigue, and disinterest.
INVISIBLE BRACES ORTHODONTIST observed medications administered whole and crushed in puree in which patient appeared to tolerate.
Given the above, recommend trial of IDDSI Level 5; minced and moist with thin liquids.
Recommendations:
1) Trial of IDDSI Level 5; minced and moist with thin liquids
2) Aspiration precautions
3) Assistance and supervision with PO
4) Medications as tolerated
Plan: INVISIBLE BRACES ORTHODONTIST will continue to follow; pending hospitalization.
[2023-12-29] MEDS: NOVOLOG FLEXPEN-LOW RESISTANCE SC ×2 (13:08→23:57)
[2023-12-29 13:16] LABS: Glucose - Point of Care 144 mg/dl (70-99)
[2023-12-29] MEDS: NSS (PRESERVATIVE FREE) 0.5 ML IV (13:35)
[2023-12-29] MEDS: ATIVAN 1 MG IV (13:36)
[2023-12-29] MEDS: LIDOCAINE 4% PATCH 1 PATCH TOPICAL (14:43)
--- NOTE | 2023-12-29 14:45 | PTCARENOTE ---
Pt vomited large amount bilious emesis prior to giving PRN dose of Zofran. Zofran given, Ativan also given and MRI completed. Pt back in room at this time, family at bedside. Speech more garbled after MD Josue aware.
[2023-12-29] MEDS: LIPITOR 40 MG PO (18:01)
[2023-12-29 18:11] LABS: Glucose - Point of Care 158 mg/dl (70-99)
--- NOTE | 2023-12-29 20:00 | PTCARENOTE ---
Pt alert and oriented to self and place, NIHSS 5 on neuro assessment. See neuro flow sheet. Remains on Dopamine gtt 6mcg/hr. for SBP 120-140. Afebrile. Purewick in place, skin intact. Pt offers no complaints at this time, plan of care on going.
[2023-12-30] VITALS (67 sets, daily range): BP systolic 79–185; BP diastolic 27–135; PULSE 48–58; O2SAT 97–98
--- NOTE | 2023-12-30 00:04 | PTCARENOTE ---
Report received from previous shift RN 2300. Pt in bed asleep, wakened easily to verbal stimuli. Tandem NIHSS performed w offgoing shift RN, NIH 4 (see flowsheet for full details). Pt is AAO2, forgetful to time, + expressive aphasia with slightly
garbled speech. Telemetry rhythm reveals SB w 1st degree AVB, HR 50's, no edema, palpable peripheral pulses present, knee high SCDs in use per order. Pt received on 7 mcg/kg/min Dopamine. Lung sounds are clear throughout, decreased in b/l base, pox
96-100% on 2L O2 nasal cannula. +BS, abdomen soft nontender. Pt reportedly had intermittent nausea since admission with several episodes of vomiting; pt denies nausea currently. Incontinent oliver urine, PureWick device in place. Lidoderm patch to R
lower back area. Pt denies pain. R AC int capped. R wrist/hand int with Dopamine infusion. Prior shift RN reported providing pt CHG bath earlier in night, this RN provided oral and denture care. Call whitney within reach, safe environment maintained.
Will monitor closely.
[2023-12-30 00:09] LABS: Glucose - Point of Care 136 mg/dl (70-99)
--- NOTE | 2023-12-30 04:30 | PTCARENOTE ---
Pt sleeping when undisturbed. Wakens easily to verbal stimuli. No change in neuro assessment. Attempting to taper Dopamine as able. Will monitor.
[2023-12-30 04:45] LABS: % Basophils 0.3 % (0-2); % Eosinophils 0.4 % (0-6); % Immature Granulocytes 0.4 % (0-0.5); % Lymphocytes 20.5 % (20.5-51.1); % Monocytes 10.8 % (1.7-9.3); % Neutrophils 67.6 % (42.2-75.2); Absolute Eosinophils 0.1 10^3/uL (0-0.7); Absolute Immature Granulocytes 0.1 10^3/uL (0-0.05); Absolute Lymphocytes 2.3 10^3/uL (1.2-3.4); Absolute Monocytes 1.2 10^3/uL (0.1-0.6); Absolute Neutrophils 7.6 10^3/uL (1.4-6.5); Hematocrit 30.3 % (37.0-47.0); Hemoglobin 10.5 g/dL (12.0-16.0); Mean Corp Hgb Conc. 34.7 g/dL (33.0-37.0); Mean Corpuscular Hgb 30.3 pg (27.0-31.0); Mean Corpuscular Volume 87.6 fL (81.0-99.0); Mean Platelet Volume 9.8 fL (7.4-10.4); Nucleated Red Blood Cells % 0 %; Platelet Count 172 10^3/uL (130-400); Red Blood Cell Count 3.46 10^6/uL (4.20-5.40); Red Cell Dist. Width 12.4 % (11.5-14.5); White Blood Cell Count 11.2 10^3/uL (4.8-10.8)
[2023-12-30 05:09] LABS: Blood Urea Nitrogen 24 mg/dl (7-17); Calcium 9.1 mg/dl (8.4-10.2); Carbon Dioxide 22 mmol/L (22-30); Chloride 104 mmol/L (98-107); Glucose 266 mg/dl (70-99); Potassium 4.5 mmol/L (3.5-5.1); Sodium 134 mmol/L (135-145); eGFR > 60.00
[2023-12-30] MEDS: NOVOLOG FLEXPEN-LOW RESISTANCE 1 UNITS SC (06:12)
[2023-12-30] MEDS: DOPamine 400 MG 250 IV ×2 (06:20→23:43)
[2023-12-30 06:23] LABS: Glucose - Point of Care 156 mg/dl (70-99)
[2023-12-30] MEDS: PLAVIX 75 MG PO (07:42)
[2023-12-30] MEDS: LIDOCAINE 4% PATCH 1 PATCH TOPICAL (07:42)
[2023-12-30] MEDS: LOW STRENGTH ASPIRIN 81 MG PO (07:42)
--- NOTE | 2023-12-30 07:46 | W.PN.INTV ---
Today's Communication / Plan
Recommendations
Await echocardiogram
Continue close monitoring of blood pressure, SBP less than 180
Remains on Plavix/aspirin
Dopamine continues for now, wean as able
Assessment
-
78-year-old woman with history of hypertension, diabetes who usually is very active. Brought in by EMS after having collapse. Found to be obtunded in the emergency room. Right hemiparesis was noted. CT head was negative and she was treated for
acute CVA. Tenecteplase was given. She was found to have 100% occlusion of the left common internal carotid artery. Underwent stent placement on IAT 12/28/2023
Acute CVA: Right hemiparesis-status post tenecteplase 12/28/2023
100 % Occlusion of the left common internal carotid artery: Status post intra-arterial thrombectomy/stent placement
Catheterization report:
1. Complex with successful stenting of 100% occluded left internal carotid artery with distal protection using a Spider EZ filter wire. The carotid was stented with a 9 x 30 mm Precise stent and postdilated with a 5.0 mm noncompliant balloon
2. Stenosis of the right internal carotid artery estimated at least 50-60% on the single view obtained
Vomiting
Incidental lung nodule 9 mm in the left upper lobe
Conditions present prior admission:
Hypertension
Type 2 diabetes
Dyslipidemia
Assessment and plan:
At this time, patient appears to be comfortable but critically ill, remains on dopamine 5 mcg
Transferred out of bed to chair, heart rate in the 50s, without symptoms
Reviewed brain MRI imaging, left-sided acute infarcts, 1 area with mild hemorrhage per report
Continues to have right-sided hemiparesthesia and some dysarthria. Following commands. Strength improved compared to admission.
Moving forward
Continue with frequent neurological checks
Left carotid stent in place, patient on aspirin/Plavix
Eventual echocardiogram, statin therapy
Continue hemodynamic monitoring: Goal blood pressure in the first 24 hours would be less than 180/105 mmHg. After that goal will be normotensive.
Blood pressure augmentation with dopamine, wean as able
Right groin incision without hematoma.
Acute kidney injury on admission, resolving
Vomiting on admission: So far no evidence for aspiration.
Chest x-ray 12/29/2023 without infiltrates.
Not requiring supplemental oxygen
Afebrile/Leukocytosis noted per
Continue to follow
Blood sugar control, goal 140-180 per
Insulin will be provided as needed
Recent fingerstick 156, follow
Speech evaluation and an eventual physiatry consultation
PT/OT
DVT prophylaxis with SCDs. Will hold pharmacological prophylaxis given MRI findings. Will await neurology evaluation
Reviewed at length with family at bedside
Critical care statement: A total of 31 minutes of critical care time was provided for this patient today. This includes management of unstable vital signs, evaluation of the patient at bedside, reviewing the patient's pertinent medical records
including ventilator settings, arterial blood gases, radiographs, microbiology, laboratory evaluations and discussion with primary team, critical care nursing, and respiratory therapy.

Imaging reviewed:
CT brain:
1. No definite acute process. No acute hemorrhage.
2. Mild decrease in attenuation in the deep and periventricular white matter. This may be slightly asymmetric on the left, nonspecific. MRI would be much more sensitive in this regard.
Head and neck CTA:
Significant vascular calcification of the aortic arch, significant vascular calcification at the carotid bifurcation bilaterally. There is no aortic dissection.
On the left there is occlusion of the left ICA at the bifurcation.
On the right there is at least 65% stenosis of the origin of the right ICA.
Minimal reconstitution of the left ICA at the cavernous sinus. Diminutive but present contrast enhancement of the proximal left MCA. Distal MCA is patent. No stenosis or filling defect identified in the left MCA.
The A1 segment is absent on the left. Patent anterior communicating artery. 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
Subjective Dataa
Subjective Data
Date of Service:
Date of Service: December 30, 2023
Subjective:
Patient remains critically ill, on dopamine for hypotension, bradycardia. Patient is without complaints, denies headaches. Recent NIH 3. Family at bedside
Objective Data
Data Reviewed
Vital Signs / I&O / Oxygen:
Vital Signs
Temp Pulse Resp BP Pulse Ox
98.7 F 53 22 142/40 98
12/30/23 07:25 12/30/23 06:00 12/30/23 06:00 12/30/23 06:00 12/30/23 06:00
Intake and Output
12/29/23 12/30/23 12/31/23
06:59 06:59 06:59
Intake Total 160.2 / 184.2 431.8 / 431.8
Output Total 1300 / 1300
Balance 160.2 / 184.2 -868.2 / -868.2
SaO2 98
Nasal Cannula flow liters per 2
minute
Physical Exam
General: Comfortable
HEENT: Normocephalic and Anicteric
Cardiovascular: S1-S2, Regular Rhythm, Murmur (n) and Rub (n)
Respiratory: Wheeze (n), Crackles (n), Rhonchi (n) and Non-Labored Respirations
GI: Soft, Non Distended and Non Tender
Neurology: Awake, Alert and No Motor Deficits (Mild right-sided weakness)
Skin: Cyanosis (n), Jaundice (n) and Rash (n)
Labs/Micro/Reports
Lab Data
12/30/23 04:18
12/30/23 04:18
[2023-12-30 07:55] LABS: ACT-LR - POC > 397 Seconds (116-155)
--- NOTE | 2023-12-30 09:13 | W.PN.HOSP.TC ---
Today's Communication/Plan
-
see bold
Assessment / Plan
Assessment / Plan
HPI: 76-year-old female with history of diabetes, hypertension, dyslipidemia, p/w collapse, decreased level of consciousness with weakness of the right side at a community event.
She was noted to be weaker in the right extremity.
Her stat CT head did not show abnormality so TNK was given per recommendation of neurology with the ER physician.
Her CTA head showed complete occlusion of the left internal carotid artery. She was taken straight to the lab animal technician and had successful stenting of the proximal left internal carotid artery by Dr. Tong.
A/P:
# Acute metabolic encephalopathy with Right-sided weakness due to Acute stroke
S/p TNK on admission
Appreciate neurology and big data developer input
LDL 45, started atorvastatin and would use 40 mg for now given LDL at 45
A1C 6.4
SPL/PT/ OT eval as needed
Would need Physiatry consult when medically more stable
DVT prophylaxis with SCD
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
S/p stent placement of L internal carotid artery on admission
cont DAPT ASA/plavix per Dr Tong
Cont current dopamine drip for BP support
# Incidental finding of a 9 mm nodule in the left upper lobe from CT angio
Recommend outpt follow-up with chest CT with contrast when more medically stable, family informed
# Occlusion of the right coronary artery
# Diabetes
# Hypertension
# Dyslipidemia.
DVT prophylaxis�SCDs
DNR/DNI
Physical Exam
General: No acute distress
HEENT: Normocephalic, Atraumatic, EOMI, MMM
Respiratory: Clear to Auscultation bilaterally
Cardiac: Normal S1/S2, Regular Rate and Rhythm
GI: Soft, Nontender, Nondistended, Normal Bowel Sounds
Extremities: No Clubbing, Cyanosis, or Edema
Neuro: Right-sided weakness
Psych: Calm, Cooperative
Derm: No Visible lesions
Anticipated Discharge: > 48 hours
Subjective/Interval History
-
Date of Service: December 30, 2023
Patient continues to improve. No chest pain, no shortness of breath, no palpitations. Denies pain. Complains of sore throat.
Objective Data
-
Labs:
Laboratory Results
12/30/23
04:18
WBC 11.2 H
Hgb 10.5 L
Hct 30.3 L
Plt Count 172 D
Sodium 134 L
Potassium 4.5
Chloride 104
Carbon Dioxide 22
BUN 24 H
Creatinine 0.8
Glucose 266 H
Calcium 9.1
Vital Signs:
Vital Signs
Temp Pulse Resp BP Pulse Ox
98.7 F 50 21 131/55 97
12/30/23 07:25 12/30/23 09:00 12/30/23 09:00 12/30/23 09:00 12/30/23 09:00
I&O
12/29/23 12/30/23 12/31/23
06:59 06:59 06:59
Intake Total 160.2 / 184.2 431.8 / 447.8 29.3 / 29.3
Output Total 1300 / 1300
Balance 160.2 / 184.2 -868.2 / -852.2 29.3 / 29.3
--- NOTE | 2023-12-30 09:18 | PTCARENOTE ---
Pt alert and oriented to self and place, NIHSS 3 on neuro assessment. See neuro flow sheet. Remains on Dopamine gtt for SBP 120-140. Attempted to wean gtt unsuccessfully. Afebrile. Purewick in place, skin intact. Pt offers no complaints at this
time, plan of care on going. Son at bedside.
--- NOTE | 2023-12-30 09:21 | W.PN.NEURO.1 ---
Addendum entered and electronically signed by Heath Collazo MD 01/01/24 07:34:
Vasogenic edema due to the ischemic stroke is not a valid diagnosis, stroke produces cytotoxic edema and not vasogenic edema, the cytotoxic edema not present on admission as usually takes 2-5 days to develop after stroke.
Original Note:
Today's Communication / Plan
-
-Continue DAPT therapy
-Speech, PT/OT
-Goal normotension pursue SBP maximum less than 180
-Check TTE and continue cardiac telemetry
-Aspiration precautions
-Okay to move out of ICU from neurologic perspective
Discussed with patient's son at [facility]
Will follow
Neuro Assessment/Plan
Assessment
Abrupt onset of acute ischemic stroke
Most likely due to left internal carotid artery occlusion. Patient completed both tenecteplase and stenting successfully
MRI with expected left MCA territory ischemic stroke
Small amount of left frontal petechial hemorrhage is not worrisome to me, not symptomatic from this, no neurologic deterioration, and has extremely strong indication for DAPT therapy with carotid stent
Etiology of stroke is felt most likely atheroembolic from diabetes and hypertension producing occlusion of left carotid artery
Subjective/Objective
Subjective Data
Date of Service: December 30, 2023
No acute events, denies pain or headache
Objective Data
Vital Signs
Temp Pulse Resp BP Pulse Ox
98.7 F 50 21 131/55 97
12/30/23 07:25 12/30/23 09:00 12/30/23 09:00 12/30/23 09:00 12/30/23 09:00
Lab Results
12/30/23 04:18
12/30/23 04:18
PT 14.0 Sec (11.4-14.6) 12/29/23 04:06
INR 1.10 12/29/23 04:06
APTT 29.4 Sec (23.4-35.0) 12/29/23 04:06
Sodium 134 mmol/L (135-145) L 12/30/23 04:18
Potassium 4.5 mmol/L (3.5-5.1) 12/30/23 04:18
BUN 24 mg/dl (7-17) H 12/30/23 04:18
Glucose 266 mg/dl (70-99) H 12/30/23 04:18
Calcium 9.1 mg/dl (8.4-10.2) 12/30/23 04:18
Phosphorus 3.7 mg/dl (2.5-4.5) 12/29/23 04:06
LDL Cholesterol, Calc 45 mg/dl 12/29/23 04:06
Vitamin B12 301 pg/ml (239-931) 12/28/23 18:54
Patient Allergies
adhesive tape Allergy (Unknown, Verified 01/14/18 19:57)
Rash
ibuprofen Allergy (Verified 01/14/18 19:57)
Rash
Penicillins Allergy (Verified 01/14/18 19:57)
Rash
oxycodone [From Percocet] Adverse Reaction (Verified 01/14/18 19:57)
Unknown
food and environmental Allergy (Uncoded 01/14/18 19:57)
Unknown
Review of Systems
-
History Source: Patient
All other systems: Reviewed and negative
Constitutional: No Symptoms
EENT: No Symptoms Reported
Respiratory: No Symptoms
Cardiac: No Symptoms
Abdomen/GI: No Symptoms
Genitourinary: No Symptoms
Musculoskeletal: No Symptoms
Skin: No Symptoms
Neuro: No Symptoms
Endocrine: No Symptoms
Hematologic / Lymphatic: No Symptoms
Allergy / Immunology: No Symptoms
Physical Exam
-
General: Comfortable
Eyes: No Ptosis
HEENT: Normocephalic
Neck: No Bruits Bilaterally
Respiratory: Clear to Auscultation
Cardiac: Regular Rhythm
GI: Normal Bowel Sounds
Skin: Unremarkable
Extremities: No Clubbing
Psych: Negative Agitated
Extended Neurological Exam
Mood & Affect: Mood Unremarkable and Affect Unremarkable
Attention Span & Concentration: Awake, Alert, Interactive and No Difficulty with 2 Step Request
Memory: Reduced
Tremor: Hand Tremor Absent
Involuntary Movement: None
Speech: Other (Minor/mild mixed aphasia, decreased spontaneous speech, some difficulty with repetition of complex phrases, naming difficulty)
Cranial Nerve II: Left Eye: Pupillary Reactivity Unremarkable, Pupillary Size Unremarkable and Other (Right sided visual neglect)
Cranial Nerve II: Right Eye: Pupillary Reactivity Unremarkable, Pupillary Size Unremarkable and Other (Right sided visual neglect)
Cranial Nerves III, IV, : Extraocular Movement: Extraocular Movement Full in all Directions
Cranial Nerve VII: Facial Symmetry: Normal Facial Symmetry
Pronator Drift: No Drift in Upper Extremities (No drift on this exam seated on bed)
Touch Sensation: Unremarkable
Coordination: [id number] Testing Unremarkable
Data Reviewed
-
CT-A: Report Reviewed and Image Reviewed
CT Head: Report Reviewed and Image Reviewed
MRI Head: Report Reviewed and Image Reviewed
Labs: Report Reviewed
--- NOTE | 2023-12-30 11:15 | PTOTSP ---
Speech Therapy Language Assessment
Patient's verbal expression if fluent and grammatically intact though with reduced phrase length. Poor initiation but limitations may be related more to lethargy. Evidence of word finding difficulty noted during confrontation tasks of which the
patient is stimulable to phonemic cues. Auditory comprehension grossly within functional limits in conversation but impaired with increased length and complexity of information. Extended processing time also noted.
ST will follow to further assess expressive and receptive language skills.
Speech Therapy is recommended in next level of care.
[2023-12-30 12:06] LABS: Glucose - Point of Care 167 mg/dl (70-99)
--- NOTE | 2023-12-30 12:31 | PTCARENOTE ---
Pt remains OOB to chair. Attempted to wean O2 to RA unsuccessfully. BP 121/34 with HR 48-unable to wean dopamine at this time.
--- NOTE | 2023-12-30 16:05 | PTCARENOTE ---
Assessment unchanged. Family at bedside. Dopamine gtt weaning-see flowsheet.
[2023-12-30 17:25] LABS: Glucose - Point of Care 122 mg/dl (70-99)
[2023-12-30] MEDS: GLUCOPHAGE 500 MG PO (17:40)
[2023-12-30] MEDS: LIPITOR 40 MG PO (17:40)
--- NOTE | 2023-12-30 20:00 | PTCARENOTE ---
Received patient AAOx2, following commands, denying pain, daughter at bedside. NIHSS 1, right sided weakness present, mild aphasia. Sinus archie, 50s. On dopamine gtt, titrating to keep SBP 120-140. SCDs on. On 1 liter nasal cannula, saturating 96%.
Lung sounds clear. Poor appetite, no BM yet this shift. Positive bowel sounds. Purewick in place, bladder scanned for 287 mls post void of 250 mls. Right groin thrombectomy site dressing CDI, soft. Right wrist #20 infusing dopamine gtt. Call whitney
within reach, able to make needs known.
[2023-12-30 22:25] LABS: Glucose - Point of Care 120 mg/dl (70-99)
[2023-12-31] VITALS (42 sets, daily range): BP systolic 86–168; BP diastolic 34–77; PULSE 58–65; O2SAT 97; BMI 25.8
--- NOTE | 2023-12-31 | PTCARENOTE ---
Patient assessment unchanged from previous, call whitney within reach.
[2023-12-31 04:58] LABS: Hematocrit 28.6 % (37.0-47.0); Hemoglobin 9.9 g/dL (12.0-16.0); Mean Corp Hgb Conc. 34.6 g/dL (33.0-37.0); Mean Corpuscular Hgb 30.6 pg (27.0-31.0); Mean Corpuscular Volume 88.3 fL (81.0-99.0); Mean Platelet Volume 9.2 fL (7.4-10.4); Platelet Count 172 10^3/uL (130-400); Red Blood Cell Count 3.24 10^6/uL (4.20-5.40); Red Cell Dist. Width 12.2 % (11.5-14.5); White Blood Cell Count 9.6 10^3/uL (4.8-10.8)
--- NOTE | 2023-12-31 05:12 | PTCARENOTE ---
CHG bath done, repositioned, labs sent. Bladder scanned for 417 mls, will recheck in 20-30 min. Call whitney within reach, safe environment maintained.
[2023-12-31 05:23] LABS: Blood Urea Nitrogen 24 mg/dl (7-17); Calcium 9.3 mg/dl (8.4-10.2); Carbon Dioxide 24 mmol/L (22-30); Chloride 108 mmol/L (98-107); Estimated Creatinine Clearance 46 ml/min; Glucose 125 mg/dl (70-99); Potassium 4.6 mmol/L (3.5-5.1); Sodium 137 mmol/L (135-145); eGFR > 60.00
--- NOTE | 2023-12-31 07:44 | W.PN.HOSP.TC ---
Today's Communication/Plan
-
see bold
Assessment / Plan
Assessment / Plan
HPI: 76-year-old female with history of diabetes, hypertension, dyslipidemia, p/w collapse, decreased level of consciousness with weakness of the right side at a community event.
She was noted to be weaker in the right extremity.
Her stat CT head did not show abnormality so TNK was given per recommendation of neurology with the ER physician.
Her CTA head showed complete occlusion of the left internal carotid artery. [facility] and had successful stenting of the proximal left internal carotid artery by Dr. Tong.
A/P:
# Acute metabolic encephalopathy with Right-sided weakness due to Acute stroke
S/p TNK on admission 12/26
Appreciate neurology and date pitter input, goal of normotension
LDL 45, continue atorvastatin 40 mg nightly, A1C 6.4
SPL/PT/OT eval
Would need Physiatry consult when medically more stable
Okay to start subcu Lovenox for DVT prophylaxis 24 hours after TNK per neuro
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
S/p stent placement of L internal carotid artery on admission
Cont DAPT ASA/plavix per Dr Tong
Cont current dopamine drip for BP support, wean as tolerated
# Incidental finding of a 9 mm nodule in the left upper lobe from CT angio
Recommend outpt follow-up with chest CT with contrast when more medically stable, family informed
# Occlusion of the right coronary artery
# Diabetes
# Hypertension
# Dyslipidemia.
DVT prophylaxis�Okay to start subcu Lovenox for DVT prophylaxis 24 hours after TNK per neuro
DNR/DNI
Physical Exam
General: No acute distress
HEENT: Normocephalic, Atraumatic, EOMI, MMM
Respiratory: Clear to Auscultation bilaterally
Cardiac: Normal S1/S2, Regular Rate and Rhythm
GI: Soft, Nontender, Nondistended, Normal Bowel Sounds
Extremities: No Clubbing, Cyanosis, or Edema
Neuro: Right-sided weakness
Psych: Calm, Cooperative
Derm: No Visible lesions
Anticipated Discharge: > 48 hours
Subjective/Interval History
-
Date of Service: December 31, 2023
Reports R arm weakness. Has intermittent LH. No fever, no vomiting.
Objective Data
-
Labs:
Laboratory Results
12/31/23
04:44
WBC 9.6
Hgb 9.9 L
Hct 28.6 L
Plt Count 172
Sodium 137
Potassium 4.6
Chloride 108 H
Carbon Dioxide 24
BUN 24 H
Creatinine 0.9
Glucose 125 H
Calcium 9.3
Vital Signs:
Vital Signs
Temp Pulse Resp BP Pulse Ox
99.3 F 57 19 107/46 97
12/31/23 03:00 12/31/23 06:25 12/31/23 06:25 12/31/23 06:25 12/31/23 06:25
I&O
12/30/23 12/31/23 01/01/24
06:59 06:59 06:59
Intake Total 431.8 / 447.8 319.8 / 319.8
Output Total 1300 / 1300 500 / 500
Balance -868.2 / -852.2 -180.2 / -180.2
--- NOTE | 2023-12-31 08:00 | PTCARENOTE ---
Assumed care of patient. Pt rec'd A&Ox3...occasionally confused to year. Pleasant. Denies pain at present. Right eye slightly closed more than left eye....pupils 3/brisk. NIHSS completed at bedside w/ mold shifter RN....NIHSS 3 noted. Deficits
include...decreased sensation on right side of body....mild aphasia....visual cut w/ bilateral peripheral vision. Able to take po meds w/ thin liquids...no issues noted. S1 S2 reg w/ SB/NSR on monitor. Weak PP. Heels elevated on pillows. On 1L
N/C....sats 95%. Lungs diminished. Occasional NPC. Abdomen obese...+BS. Breakfast ordered. PW intact. Skin pale in color...right groin intact. 22P RH w/ dopamine gtt infusing...see intervention. RFA 20P capped. VS documented. Call whitney
within reach. Dtr at bedside and fully updated. Will continue to monitor closely.
--- NOTE | 2023-12-31 08:03 | W.PN.INTV ---
Today's Communication / Plan
Recommendations
Wean off dopamine
Follow blood pressure
Continue with mechanical prophylaxis. Would add pharmacological prophylaxis for DVT if okay per neurology
Remains on aspirin/Plavix
Blood sugars improved
Assessment
-
78-year-old woman with history of hypertension, diabetes who usually is very active. Brought in by EMS after having collapse. Found to be obtunded in the emergency room. Right hemiparesis was noted. CT head was negative and she was treated for
acute CVA. Tenecteplase was given. She was found to have 100% occlusion of the left common internal carotid artery. Underwent stent placement on IAT 12/28/2023
Acute CVA: Right hemiparesis-status post tenecteplase 12/28/2023
100 % Occlusion of the left common internal carotid artery: Status post intra-arterial thrombectomy/stent placement
Catheterization report:
1. Complex with successful stenting of 100% occluded left internal carotid artery with distal protection using a Spider EZ filter wire. The carotid was stented with a 9 x 30 mm Precise stent and postdilated with a 5.0 mm noncompliant balloon
2. Stenosis of the right internal carotid artery estimated at least 50-60% on the single view obtained
Vomiting
Incidental lung nodule 9 mm in the left upper lobe
Conditions present prior admission:
Hypertension
Type 2 diabetes
Dyslipidemia
Assessment and plan:
At this time, patient appears to be comfortable but critically ill, remains on dopamine 4 mcg
Heart rate is improved.
Reviewed brain MRI imaging, left-sided acute infarcts, 1 area with mild hemorrhage per report
Continues to have right-sided hemiparesthesia and some dysarthria. Following commands. Strength improved compared to admission.
Moving forward
Continue with frequent neurological checks
Left carotid stent in place, patient on aspirin/Plavix
Echocardiogram with EF 75%, normal RV size and function, structurally normal valves
Continue hemodynamic monitoring: Goal blood pressure in the first 24 hours would be less than 180/105 mmHg. After that goal will be normotensive.
Blood pressure augmentation with dopamine, wean as able
Right groin incision without hematoma
Acute kidney injury on admission, resolving
Vomiting on admission: So far no evidence for aspiration.
Chest x-ray 12/29/2023 without infiltrates.
Not requiring supplemental oxygen
Afebrile/Leukocytosis noted per
Continue to follow
Blood sugar control, goal 140-180 per
Insulin will be provided as needed
Blood sugars 120s today
Speech evaluation and an eventual physiatry consultation
PT/OT
DVT prophylaxis with SCDs. Will hold pharmacological prophylaxis given MRI findings. Defer to neurology
Reviewed at length with family at bedside
Critical care statement: A total of 31 minutes of critical care time was provided for this patient today. This includes management of unstable vital signs, evaluation of the patient at bedside, reviewing the patient's pertinent medical records
including ventilator settings, arterial blood gases, radiographs, microbiology, laboratory evaluations and discussion with primary team, critical care nursing, and respiratory therapy.

Imaging reviewed:
CT brain:
1. No definite acute process. No acute hemorrhage.
2. Mild decrease in attenuation in the deep and periventricular white matter. This may be slightly asymmetric on the left, nonspecific. MRI would be much more sensitive in this regard.
Head and neck CTA:
Significant vascular calcification of the aortic arch, significant vascular calcification at the carotid bifurcation bilaterally. There is no aortic dissection.
On the left there is occlusion of the left ICA at the bifurcation.
On the right there is at least 65% stenosis of the origin of the right ICA.
Minimal reconstitution of the left ICA at the cavernous sinus. Diminutive but present contrast enhancement of the proximal left MCA. Distal MCA is patent. No stenosis or filling defect identified in the left MCA.
The A1 segment is absent on the left. Patent anterior communicating artery. Patent bilateral KAYLEIGH, right MCA and bilateral WIRE SPINNER.
Subjective Dataa
Subjective Data
Date of Service:
Date of Service: December 31, 2023
Subjective:
Patient remains on dopamine mild headache but denies shortness of breath, chest pain, nausea, lightheadedness. She is on 1 L of oxygen
Objective Data
Data Reviewed
Vital Signs / I&O / Oxygen:
Vital Signs
Temp Pulse Resp BP Pulse Ox
99.3 F 57 19 107/46 97
12/31/23 03:00 12/31/23 06:25 12/31/23 06:25 12/31/23 06:25 12/31/23 06:25
Intake and Output
12/30/23 12/31/23 01/01/24
06:59 06:59 06:59
Intake Total 431.8 / 447.8 319.8 / 319.8
Output Total 1300 / 1300 500 / 500
Balance -868.2 / -852.2 -180.2 / -180.2
SaO2 97
Nasal Cannula flow liters per 1
minute
Physical Exam
General: Comfortable
HEENT: Normocephalic and Anicteric
Cardiovascular: S1-S2, Regular Rhythm, Murmur (n) and Rub (n)
Respiratory: Wheeze (n), Crackles (n), Rhonchi (n) and Non-Labored Respirations
GI: Soft, Non Distended and Non Tender
Neurology: Awake, Alert and No Motor Deficits (Mild right-sided weakness)
Skin: Cyanosis (n), Jaundice (n) and Rash (n)
Labs/Micro/Reports
Lab Data
12/31/23 04:44
12/31/23 04:44
[2023-12-31] MEDS: GLUCOPHAGE 500 MG PO ×2 (08:04→17:39)
[2023-12-31] MEDS: LIDOCAINE 4% PATCH 1 PATCH TOPICAL (08:04)
[2023-12-31] MEDS: LOW STRENGTH ASPIRIN 81 MG PO (08:04)
[2023-12-31] MEDS: LEXAPRO 10 MG PO (08:04)
[2023-12-31] MEDS: PLAVIX 75 MG PO (08:04)
[2023-12-31] MEDS: PEPCID 40 MG PO (08:05)
[2023-12-31 08:14] LABS: Glucose - Point of Care 141 mg/dl (70-99)
--- NOTE | 2023-12-31 11:46 | PN.CDI ---
CDI
- -
CDI:
Physician Documentation Request
Admit Date: 12/28/23 19:42
Dear Doctor,
Please review the following and provide your response in the progress notes.
Clinical Indicators:
The diagnosis of Vasogenic Edema was included in the signed Brain MRI on 12/29/23
Additional clinical indicators in the chart include:
Pt admitted with acute Stroke / 100% occlusion of left internal carotid artery S/p stent placement of L internal carotid artery
Brain MRI 12/28 ,'Areas of acute infarcts in the left frontal, frontal parietal and parietal occipital region. Mild associated vasogenic edema....'
Please indicate in your progress notes if you are in agreement that the above diagnosis is valid for this patient:
____ - Vasogenic Edema is a valid diagnosis (Please include it in your progress notes)
____ - Vasogenic Edema is not a valid diagnosis for this patient
____ - Other
Use of terms such as suspected, likely, concern for, or probable are acceptable for a diagnosis that is being evaluated, monitored or treated as if it exists and can be coded in the inpatient setting, when documented at the time of discharge.
Thank you,
Nighat Ross RN
CDI Specialist
[facility]
Please use your independent medical judgment in providing your response.
--- NOTE | 2023-12-31 12:15 | PTCARENOTE ---
Slowly weaning dopamine gtt per MD order...see intervention. Seen by physical therapy. Some dizziness and lightheadness noted w/ sitting on edge of bed. Will continue to monitor VS's. No other major changes in physical assessment.
[2023-12-31 12:17] LABS: Glucose - Point of Care 111 mg/dl (70-99)
--- NOTE | 2023-12-31 13:34 | CM ---
CM following re: discharge planning.
Discussed in Rounds, reviewed pt's chart, met with pt. Per Rounds meeting, continue DAPT therapy, continue supportive care.
PT and OT continue to recommend acute rehab level of after. [facility] reviewing a referral.
D/C plan: [facility].
CM will follow to assist pt with discharge to [facility].
--- NOTE | 2023-12-31 15:03 | PTOTSP ---
Dysphagia Therapy
Patient presents with mild oral stage differences but no overt signs concerning for pharyngeal dysphagia or aspiration. Given time required to chew/transfer solids, trial advancing to at most dysphagia diet outlined below.
Recommend:
1. IDDSI Level 6 Soft and Bite Sized, IDDSI Level 0 Thin Liquids
2. Medications as best tolerated
3. Assistance with feeding will likely be required
4. Strategies: small single sips/bites, slow rate
5. Will continue to follow for dysphagia therapy at the acute care level for patient/family education and therapeutic re-assessment of swallowing function.
--- NOTE | 2023-12-31 16:00 | PTCARENOTE ---
Off dopamine gtt and SBP has maintained > 90. Remains on 1L N/C....sats 95%. No major changes in physical assessment. Call whitney within reach. Family at bedside. Family made aware that pt's neuro symptoms could vary based on level of fatigue and
blood pressure. Pt currently comfortable
w/o complaint.
[2023-12-31 16:40] LABS: Glucose - Point of Care 113 mg/dl (70-99)
[2023-12-31] MEDS: LIPITOR 40 MG PO (17:39)
[2023-12-31] MEDS: LOVENOX 40 MG SC (17:40)
--- NOTE | 2023-12-31 19:15 | PTCARENOTE ---
Bedside NIHSS done w/ manufacturing shift supervisor RN. NIHSS of 12 noted which is a change from previous NIHSS of 3 at noon. Neurology notified and made aware of neuro changes re: increasing aphasia and dysarthria...visual cuts...worsening ataxia...decreased
sensation. STAT head CT ordered. security shift manager RN to take pt to cat scan.
--- NOTE | 2023-12-31 23:40 | PTCARENOTE ---
Patient improved from previous assessment, NIH 7. Patient slightly confused and forgetful. Aphasia, dysarthria, and ataxia improving, see flowsheets. Denture care done, mouth care done. Patient had a bowel movement, full CHG and bed change done.
Bladder scanned for 253 mls post 250 ml void of yellow urine. Bed alarm on. Call whitney within reach.
[2024-01-01] VITALS (15 sets, daily range): BP systolic 84–130; BP diastolic 38–82; PULSE 59–75; O2SAT 97–98; BMI 26.2
--- NOTE | 2024-01-01 04:06 | PTCARENOTE ---
Patient assessment unchanged from previous, sleeping comfortably. Call whitney within reach.
[2024-01-01 05:00] LABS: Hematocrit 27.6 % (37.0-47.0); Hemoglobin 9.4 g/dL (12.0-16.0); Mean Corp Hgb Conc. 34.1 g/dL (33.0-37.0); Mean Corpuscular Hgb 30.7 pg (27.0-31.0); Mean Corpuscular Volume 90.2 fL (81.0-99.0); Mean Platelet Volume 9.5 fL (7.4-10.4); Platelet Count 153 10^3/uL (130-400); Red Blood Cell Count 3.06 10^6/uL (4.20-5.40); Red Cell Dist. Width 12.2 % (11.5-14.5)
[2024-01-01 05:24] LABS: Blood Urea Nitrogen 36 mg/dl (7-17); Calcium 9.2 mg/dl (8.4-10.2); Carbon Dioxide 21 mmol/L (22-30); Chloride 107 mmol/L (98-107); Estimated Creatinine Clearance 38 ml/min; Glucose 106 mg/dl (70-99); Potassium 4.3 mmol/L (3.5-5.1); Sodium 135 mmol/L (135-145); eGFR 52.08
--- NOTE | 2024-01-01 06:51 | W.PN.INTV ---
Today's Communication / Plan
Recommendations
Continue with neurological checks
Has been weaned off dopamine
Aspirin and Plavix held for now. Defer plans for resumption to neurology
Carotid stent in place
Await formal report of head CT, however stable per discussion with neurosurgery through the night
Possible transfer out of ICU if neurology is agreeable. Once transferred, we will sign off. Please call with questions
Assessment
-
78-year-old woman with history of hypertension, diabetes who usually is very active. Brought in by EMS after having collapse. Found to be obtunded in the emergency room. Right hemiparesis was noted. CT head was negative and she was treated for
acute CVA. Tenecteplase was given. She was found to have 100% occlusion of the left common internal carotid artery. Underwent stent placement on IAT 12/28/2023
Acute CVA: Right hemiparesis-status post tenecteplase 12/28/2023
100 % Occlusion of the left common internal carotid artery: Status post intra-arterial thrombectomy/stent placement
Catheterization report:
1. Complex with successful stenting of 100% occluded left internal carotid artery with distal protection using a Spider EZ filter wire. The carotid was stented with a 9 x 30 mm Precise stent and postdilated with a 5.0 mm noncompliant balloon
2. Stenosis of the right internal carotid artery estimated at least 50-60% on the single view obtained
Vomiting
Incidental lung nodule 9 mm in the left upper lobe
Conditions present prior admission:
Hypertension
Type 2 diabetes
Dyslipidemia
Assessment and plan:
At this time, events overnight noted with worsening mental status, NIH increased to [address] confirmed small acute hemorrhage. Per discussion with neurosurgery, no significant change compared to prior MRI
Has been weaned off dopamine, systolic pressure 90s to 110s
Reviewed brain MRI imaging, left-sided acute infarcts, 1 area with mild hemorrhage per report from 12/29/2023
Continues to have right-sided hemiparesthesia and some dysarthria. Following commands. Strength improved compared to admission.
Aspirin and Plavix were held overnight at the request of neurology/neurosurgery
Moving forward
Continue with frequent neurological checks
Left carotid stent in place, patient on aspirin/Plavix, held since 01/01/2024
Echocardiogram with EF 75%, normal RV size and function, structurally normal valves
Will need to decide whether this can be resumed and timing of resumption
Defer to neurology
Continue hemodynamic monitoring
Prefer SBP less than 140. Off dopamine
Change in symptoms overnight do not seem to be correlating to systolic pressure of 90s to 110s
Right groin incision without hematoma
Acute kidney injury on admission, resolving
Vomiting on admission: So far no evidence for aspiration.
Chest x-ray 12/29/2023 without infiltrates.
Not requiring supplemental oxygen, 1 L intermittently overnight
Afebrile/Leukocytosis noted per
Continue to follow
Blood sugar control, goal 140-180 per
Insulin will be provided as needed
Speech evaluation and an eventual physiatry consultation
PT/OT
DVT prophylaxis with SCDs. Will hold pharmacological prophylaxis given MRI findings. Defer to neurology
Reviewed at length with family at bedside
Critical care statement: A total of 31 minutes of critical care time was provided for this patient today. This includes management of unstable vital signs, evaluation of the patient at bedside, reviewing the patient's pertinent medical records
including ventilator settings, arterial blood gases, radiographs, microbiology, laboratory evaluations and discussion with primary team, critical care nursing, and respiratory therapy.

Imaging reviewed:
CT brain:
1. No definite acute process. No acute hemorrhage.
2. Mild decrease in attenuation in the deep and periventricular white matter. This may be slightly asymmetric on the left, nonspecific. MRI would be much more sensitive in this regard.
Head and neck CTA:
Significant vascular calcification of the aortic arch, significant vascular calcification at the carotid bifurcation bilaterally. There is no aortic dissection.
On the left there is occlusion of the left ICA at the bifurcation.
On the right there is at least 65% stenosis of the origin of the right ICA.
Minimal reconstitution of the left ICA at the cavernous sinus. Diminutive but present contrast enhancement of the proximal left MCA. Distal MCA is patent. No stenosis or filling defect identified in the left MCA.
The A1 segment is absent on the left. Patent anterior communicating artery. Patent bilateral KAYLEIGH, right MCA and bilateral PRINTING SIGN MACHINE OPERATOR.
Subjective Dataa
Subjective Data
Date of Service:
Date of Service: January 01, 2024
Subjective:
Events overnight noted. NIH score increased to 13. Stat head CT obtained. Small bleed noted. Overall no significant change compared to prior MRI per evaluation by neurosurgery. Has been off dopamine, systolic pressure 90s to 110s. NIH score
improved this morning
Objective Data
Data Reviewed
Vital Signs / I&O / Oxygen:
Vital Signs
Temp Pulse Resp BP Pulse Ox
98.7 F 59 20 94/82 97
01/01/24 03:00 01/01/24 06:00 01/01/24 06:00 01/01/24 06:00 01/01/24 06:00
Intake and Output
12/30/23 12/31/23 01/01/24
06:59 06:59 06:59
Intake Total 431.8 / 447.8 319.8 / 333.1 50.9 / 50.9
Output Total 1300 / 1300 500 / 500 300 / 300
Balance -868.2 / -852.2 -180.2 / -166.9 -249.1 / -249.1
SaO2 97
Nasal Cannula flow liters per 1
minute
Physical Exam
General: Comfortable
HEENT: Normocephalic and Anicteric
Cardiovascular: S1-S2, Regular Rhythm, Murmur (n) and Rub (n)
Respiratory: Wheeze (n), Crackles (n), Rhonchi (n) and Non-Labored Respirations
GI: Soft, Non Distended and Non Tender
Neurology: Awake, Alert and No Motor Deficits (Mild right-sided weakness)
Skin: Cyanosis (n), Jaundice (n) and Rash (n)
Labs/Micro/Reports
Lab Data
01/01/24 04:45
01/01/24 04:45
--- NOTE | 2024-01-01 07:29 | W.PN.NEURO.1 ---
Today's Communication / Plan
-
� goal normotension
restart aspirin today
Restart clopidogrel in 24 hours to reduce risk of ischemic stroke due to stent
Continue atorvastatin, would not advance further based on the patient's current cholesterol and LDL levels
Neuro Assessment/Plan
Assessment
Abrupt onset of acute ischemic stroke
Most likely due to left internal carotid artery occlusion. Patient completed both tenecteplase and stenting successfully
MRI with expected left MCA territory ischemic stroke
Small amount of left frontal petechial hemorrhage then expanded left hemorrhage by repeated CT head 01/01/2024
Etiology of stroke is felt most likely atheroembolic from diabetes and hypertension producing occlusion of left carotid artery
Plan
Recommendations:
� goal normotension
restart aspirin today
Restart clopidogrel in 24 hours to reduce risk of ischemic stroke due to stent
Continue atorvastatin, would not advance further based on the patient's current cholesterol and LDL levels
� goal blood glucose levels for patient would be less than 180 mg/dL
� Speech, PT, OT evaluations needed
� DVT prophylaxis with Enoxaparin subcutaneous
� medical educational materials will be provided
We will follow peripherally.
Subjective/Objective
Subjective Data
Date of Service: January 01, 2024
Objective Data
Vital Signs
Temp Pulse Resp BP Pulse Ox
36.9 C 59 20 94/82 97
01/01/24 07:23 01/01/24 06:00 01/01/24 06:00 01/01/24 06:00 01/01/24 06:00
Lab Results
01/01/24 04:45
01/01/24 04:45
PT 14.0 Sec (11.4-14.6) 12/29/23 04:06
INR 1.10 12/29/23 04:06
APTT 29.4 Sec (23.4-35.0) 12/29/23 04:06
Sodium 135 mmol/L (135-145) 01/01/24 04:45
Potassium 4.3 mmol/L (3.5-5.1) 01/01/24 04:45
BUN 36 mg/dl (7-17) H 01/01/24 04:45
Glucose 106 mg/dl (70-99) H 01/01/24 04:45
Calcium 9.2 mg/dl (8.4-10.2) 01/01/24 04:45
Phosphorus 3.7 mg/dl (2.5-4.5) 12/29/23 04:06
LDL Cholesterol, Calc 45 mg/dl 12/29/23 04:06
Vitamin B12 301 pg/ml (239-931) 12/28/23 18:54
Patient Allergies
adhesive tape Allergy (Unknown, Verified 01/14/18 19:57)
Rash
ibuprofen Allergy (Verified 01/14/18 19:57)
Rash
Penicillins Allergy (Verified 01/14/18 19:57)
Rash
oxycodone [From Percocet] Adverse Reaction (Verified 01/14/18 19:57)
Unknown
food and environmental Allergy (Uncoded 01/14/18 19:57)
Unknown
Review of Systems
-
Unable to obtain full review of systems at this time due to: Aphasia
History Source: Patient and Family
All other systems: Reviewed and negative
Data Reviewed
-
CT Head: Report Reviewed and Image Reviewed
Reviewed with: Physician
Old Records: Summarized
[2024-01-01] MEDS: GLUCOPHAGE 500 MG PO ×2 (08:12→17:28)
[2024-01-01] MEDS: LIDOCAINE 4% PATCH 1 PATCH TOPICAL (08:13)
[2024-01-01] MEDS: PEPCID 40 MG PO (08:14)
[2024-01-01] MEDS: LEXAPRO 10 MG PO (08:14)
[2024-01-01 08:26] LABS: Glucose - Point of Care 112 mg/dl (70-99)
--- NOTE | 2024-01-01 08:45 | W.PN.HOSP.TC ---
Today's Communication/Plan
-
see bold
Assessment / Plan
Assessment / Plan
HPI: 76-year-old female with history of diabetes, hypertension, dyslipidemia, p/w collapse, decreased level of consciousness with weakness of the right side at a community event.
She was noted to be weaker in the right extremity.
Her stat CT head did not show abnormality so TNK was given per recommendation of neurology with the ER physician.
Her CTA head showed complete occlusion of the left internal carotid artery. She was taken straight to the laboratory secretary and had successful stenting of the proximal left internal carotid artery by Dr. Tong.
A/P:
# Acute metabolic encephalopathy with Right-sided weakness due to Acute stroke
S/p TNK on admission 12/26
Appreciate neurology and motor lodge clerk input, goal of normotension
LDL 45, continue atorvastatin 40 mg nightly, A1C 6.4
SPL/PT/OT eval, she is tolerating mechanical soft diet
Okay for subcu heparin for DVT prophylaxis 24 hours after TNK per neuro
Consult physiatry for acute rehab
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
S/p stent placement of L internal carotid artery on admission
Status post dopamine drip
Continue aspirin, resume Plavix 01/01 secondary to subdural hematoma
#Subdural hematoma
#Acute blood loss anemia secondary to subdural hematoma
Appreciate neurology input, okay to continue aspirin 81 mg today, subcu heparin for DVT prophylaxis
Neurology recommends resuming Plavix 75 mg daily 01/01
#Dehydration
Start gentle IV fluids, trend creatinine
# Incidental finding of a 9 mm nodule in the left upper lobe from CT angio
Recommend outpt follow-up with chest CT with contrast when more medically stable, family informed
# Occlusion of the right coronary artery
# Diabetes
# Hypertension
# Dyslipidemia.
DVT prophylaxis�subcu heparin
DNR/DNI
Updated family at bedside 12/31
Total time spent to see the patient on the floor, examine the patient, review data and lab results, discuss treatment plan with patient, nursing staff around 50 minutes.
Physical Exam
General: No acute distress
HEENT: Normocephalic, Atraumatic, EOMI, MMM
Respiratory: Clear to Auscultation bilaterally
Cardiac: Normal S1/S2, Regular Rate and Rhythm
GI: Soft, Nontender, Nondistended, Normal Bowel Sounds
Extremities: No Clubbing, Cyanosis, or Edema
Neuro: Right-sided weakness
Anticipated Discharge: 24 - 48 hours
Subjective/Interval History
-
Date of Service: January 01, 2024
Patient is tired, secondary to not sleeping well last night. Right upper extremity continues to improve.
Objective Data
-
Labs:
Laboratory Results
01/01/24
04:45
WBC 9.0
Hgb 9.4 L
Hct 27.6 L
Plt Count 153
Sodium 135
Potassium 4.3
Chloride 107
Carbon Dioxide 21 L
BUN 36 H
Creatinine 1.1 H
Glucose 106 H
Calcium 9.2
Vital Signs:
Vital Signs
Temp Pulse Resp BP Pulse Ox
98.4 F 59 20 94/82 97
01/01/24 07:23 01/01/24 06:00 01/01/24 06:00 01/01/24 06:00 01/01/24 06:00
I&O
12/31/23 01/01/24 01/02/24
06:59 06:59 06:59
Intake Total 319.8 / 333.1 50.9 / 50.9
Output Total 500 / 500 300 / 300
Balance -180.2 / -166.9 -249.1 / -249.1
--- NOTE | 2024-01-01 08:59 | PTCARENOTE ---
Received pt awake and alert.NIHSS completed in tandem with outgoing RN.NIHSS 4.+ slight dysarthria,+ slight expressive aphasia with 'cookie theft 'picture,+ RUE ataxia.Assisted OOB to chair with 2 person minimal assist.Denies pain.SR noted.POX
92-93% on RA.Lungs CTA.Encouraged to cough and deep breath.Speech therapist reassessed pt before po intake to ensure swallow.No difficulty swallowing noted.No BM.Incontinent of yellow urine via PureWick.Right groin puncture wound dressing intact
without drainage.Pt's sons and daughter at bedside.Plan of care discussed with the pt and her children.
[2024-01-01] MEDS: TYLENOL 650 MG PO (10:41)
--- NOTE | 2024-01-01 10:56 | PTCARENOTE ---
Pt c/o left jew headache.Unable to quantify.Medicated with Tylenol.Pain resolved in ~ 5 minutes. Neuro status unchanged upon exam.
--- NOTE | 2024-01-01 11:12 | PTCARENOTE ---
Report given to 4 Acute RN.
[2024-01-01] MEDS: LOW STRENGTH ASPIRIN 81 MG PO (11:16)
[2024-01-01 11:48] LABS: Glucose - Point of Care 116 mg/dl (70-99)
--- NOTE | 2024-01-01 12:21 | CM ---
CM following re: discharge planning.
Discussed in Rounds, reviewed pt's chart, met with pt. Per Rounds meeting, pt has been improved, PT/OT to evaluate and pt will be downgraded from ICU level of care
PT and OT continue to recommend acute rehab level of after. [facility] reviewing a referral. PM&R consult requested.
D/C plan: [facility].
CM will follow to assist pt with discharge to [facility].
--- NOTE | 2024-01-01 12:22 | PTCARENOTE ---
Pt transferred to [facility] via wheelchair.NIHSS completed in tandem with receiving RN.Aphasia worsened.Pt perseverating words.BP 92/56.Pt denies headache or pain.Dr Montano made aware.
[2024-01-01] MEDS: NSS 1000 IV (14:33)
[2024-01-01] MEDS: HEPARIN 5000 UNITS SC ×2 (15:29→23:18)
--- NOTE | 2024-01-01 16:21 | CON.MD ---
Addendum entered and electronically signed by Jose Boyd MD 01/01/24 17:50:
Spoke with nursing regarding right IV infiltration. Also suggested extension of call whitney or alternative call whitney because patient does not attend to the right side and call whitney does not reach to the left side.
A total of 60 minutes were spent with the patient preparing for the evaluation, obtaining history, performing examination and evaluation, counseling, data review, case management, care coordination, orderly, and EMR documentation.
Original Note:
Consultation - Medical
-
Referring Provider: Dr. Bayron Clark
Chief Complaint: Stroke
History of Present Illness: 78-year-old right-handed female female with PMH (as below) presented to [facility] on 12/28/2023 with change in mental status with right-sided weakness. She was seen by neurology was a candidate for TNK which was
administered. Also noted acute kidney injury and given IV fluid. Small amount of left frontal petechial hemorrhage then expanded left hemorrhage by repeated CT head 01/01/2024. On aspirin with Plavix starting 01/01 secondary to a subdermal hematoma.
Patient with aphasia limiting details of history. Was able to speak with her daughter and son for more details as well as review of chart.
Past Medical History: Hypertension, diabetes, HLD, colitis
Procedure History: Cervical fusion
Family History: Father with CVA, diabetes, and hypertension
Social History:
Functional Level Premorbidly: Independent with all activities
Functional Level Currently:�� Mod assist transfers, ambulate 25 feet x 1 mod assist with rolling walker. Dependent for lower extremity dressing.
Tobacco: Denies
Alcohol: Denies
Drug use: Denies
Lives with: Alone
24-hour assistance available: No
Number of floors: 1
# steps to enter: 0
Driving: Yes
Occupation: Retired
Allergies:
Allergy/AdvReac Type Severity Reaction Status Date / Time
adhesive tape Allergy Unknown Rash Verified 01/14/18 19:57
ibuprofen Allergy Rash Verified 01/14/18 19:57
Penicillins Allergy Rash Verified 01/14/18 19:57
oxycodone [From Percocet] AdvReac Unknown Verified 01/14/18 19:57
food and environmental Allergy Unknown Uncoded 01/14/18 19:57
Review of Systems:
Constitutional: (x) abNormal _fatigue
Eye: (x) Normal _
Ear/Nose/Throat: (x) Normal _
Respiratory: (x) Normal _
Cardiovascular: (x) Normal _
Gastrointestinal: (x) Normal _
Genitourinary: (x) Normal _
Musculoskeletal: (x) Normal _
Integumentary: (x) Normal _
Neurologic: (x) abNormal _stroke with trouble talking, trouble walking, trouble getting dressed.
Psychiatric: (x) Normal _
Endocrine: (x) Normal _
Hematologic/Lymphatic: (x) Normal _
Allergic/Immunologic: (x) Normal _
Medications:
Active Current Visit Medication List
Category Date Time Status
0.9% Sodium Chloride 1000 ml [Nss] 1,000 ml Med 01/01/24 14:30 Active
IV 75 mls/hr
Acetaminophen [Tylenol] Med 12/28/23 20:45 Active
650 mg PO Q4HPRN PRN
Aspirin Chewable [Low Strength Aspirin] Med 01/01/24 11:00 Active
81 mg PO DAILY
Atorvastatin [Lipitor] Med 12/29/23 18:00 Active
40 mg PO QPM
Dextrose 50%-Water [Dextrose 50% Syringe] Med 12/28/23 20:45 Active
12.5 grams IV [id number] PRN
Escitalopram Oxalate [Lexapro] Med 12/31/23 08:00 Active
10 mg PO DAILY
Famotidine [Pepcid] Med 12/31/23 08:00 Active
40 mg PO DAILY
Flush (0.9% Sodium Chloride) [Flush (Nss)] Med 12/28/23 21:00 Active
See Dose Instructions IV PER PROTOCOL
Glucagon [GlucaGen] Med 12/28/23 20:45 Active
1 mg IM PRN PRN
Heparin Med 01/01/24 16:00 Active
5,000 units SC Q8
Insulin Aspart Corrective Low [Novolog Flexpen-Low Med 12/30/23 10:32 Active
Resistance]
See Protocol SC AC
Lidocaine [Lidocaine 4% Patch] Med 12/29/23 10:00 Active
1 patch TOPICAL DAILY
METFORMIN HCl [Glucophage] Med 12/30/23 17:00 Active
500 mg PO BID@0800,1700
Ondansetron Injectable [Zofran] Med 12/29/23 00:53 Active
4 mg IV Q6HPRN PRN
Vitals:
Temp Pulse Resp BP Pulse Ox
98.7 F 56 17 99/51 98
01/01/24 12:38 01/01/24 12:38 01/01/24 12:38 01/01/24 12:38 01/01/24 12:38
Height 5 ft 4 in
Actual Weight 69.1 kg
Body Mass Index (BMI) 26.2
Physical Exam:
General Appearance/Observation: Well-developed, well-nourished female in no apparent distress.
Pain/Comfort Assessment: Denies
Mood/Affect: Appropriate
Integumentary/Operative Site: Right dorsal hand IV with erythema, swelling, and warmth
Eyes: Conjunctiva/Lids: normal ��� Pupils: pupils equal round and reactive to light and Accommodation
Ears/Nose/Throat: oral mucosa moist,� throat clear.������������ Lips/Teeth/Gums: normal
Neck: Mild to moderate muscle spasm, no tenderness
Cardiovascular: Heart: regular, no murmur
Pulses: dorsalis pedis 2+ bilaterally
Respiratory: Respiratory Effort/Chest Expansion: normal ������ Auscultation: Clear to auscultation bilaterally
Gastrointestinal: abdomen not tender, no distension, normal abdominal bowel sounds
Genitourinary: Pure wick
Extremities: Edema: None Cyanosis: None Trophic changes: None
Neurology Exam:
Orientation: Alert, Oriented to self, Time, Place with some repetition and choices given aphasia
Memory: Limited by aphasia but appears to be intact
Repetition: Impaired
Comprehension: Mildly impaired
Two step command: Impaired
Naming: Impaired
Cranial Nerves:
�� CNII: Pupillary light reflex: Intact��� Visual Field: Absent right visual field
�� CN III, IV, : Extraocular muscles: Intact
�� CN V: Facial Sensation at Forehead: Intact, Maxilla: Intact, Mandible: Intact
�� CN VII: Facial movement: Right facial weakness
�� CN VIII: Hearing: Normal
�� CN IX/X: Speech & swallow: Aphasia, dysarthria, dysphagia, Position of Uvula: Midline
�� CN XI: Shoulder shrug: Decreased on right
�� CN XII: Tongue protrusion: Midline
Sensory:
�� Light touch: Intact in bilateral upper and lower extremities. Right neglect
�
Reflexes:
�� Biceps: 2+ bilaterally
�� Brachioradialis: 2+ bilaterally
�� Triceps: 2+ bilaterally
�� Patellar: 2+ bilaterally
�� Achilles: 2+ bilaterally
�� Babinski: Down going bilaterally
�� Clonus: None
�� Severino: Positive bilaterally
Cerebellar: Dysmetria/Ataxia: None on left, difficulty on right with weakness and inattention
Musculoskeletal:Motor: (Manual muscle scale 0-5)
Muscle SA EF WE EE FF FA HF KE DF EHL PF
Right� 3 4 4 4 3 3 3 4 4 4 4
Left 5 5 5 5 5 5 4 5 5 5 5
Tone: Normal in all extremities
Range of Motion: Passively within functional limits in all extremities
Lab Results
Laboratory Data
01/01/24 04:45
01/01/24 04:45
PT 14.0 Sec (11.4-14.6) 12/29/23 04:06
INR 1.10 12/29/23 04:06
APTT 29.4 Sec (23.4-35.0) 12/29/23 04:06
Total Bilirubin 0.6 mg/dl (0.2-1.3) 12/28/23 18:54
AST 23 U/L (14-36) 12/28/23 18:54
ALT 14 U/L (0-35) 12/28/23 18:54
Alkaline Phosphatase 81 U/L (38-126) 12/28/23 18:54
Total Protein 7.6 g/dl (6.3-8.2) 12/28/23 18:54
Albumin 4.5 g/dl (3.5-5.0) 12/28/23 18:54
Diagnostic Results: as per HPI
Assessment
78-year-old F PMH (Hypertension, diabetes, HLD, colitis) with 12/28/2023 with change in mental status with right-sided weakness from left MCA and PULLER THROUGH infarcts s/p TNK and left carotid stent with ADL, ambulatory, speech dysfunction.
Plan
PM&R PT/OT to increase independence with ADLs, improve balance, coordination, endurance, strength, mobility, community reintegration, decreased burden of care on others and family education.
Left MCA/PULLER THROUGH CVA s/p TNK and left carotid stent: Secondary prophylaxis with aspirin, starting Plavix 01/01 statin, and blood pressure control (SBP less than 180 and diastolic less than 100 to participate with therapy for ischemic stroke). Continue to
monitor neurologic status.
Right dominant hemiparesis: High risk for falls and sliding out of chair/bed. Safety reinforced.
- Avoid using affected arm to help lift or pull patient as this will cause trauma to the shoulder.
Right Neglect: makes patient at increased risk for falls.� Will need therapy to work on scanning of environment for safe navigation.
Dysphagia: speech, oral care protocol, aspiration precautions.� Advance to soft and bite sized diet as tolerated.
Dysarthria: speech
Aphasia: speech
HTN: continue medications, monitor closely
HLD: Statin������
Diabetes: Metformin
Normocytic anemia: Slowly trending downward at 9.4 from 9.9 from 10.5. Continue to monitor.
FEN:
Depression: Psychology consult.� Monitor mood, on Lexapro, adjust as necessary.
Skin: monitor for pressure sores/rashes/lesions.
Pain: acetaminophen as needed.
Bowel: Colace and Senna, PRN bisacodyl.
Bladder: Time void, PVRs, PRN straight cath.
DVT Prophylaxis: Mechanical and heparin
GI prophylaxis: Pepcid
Pulmonary: Incentive spirometry
Safety: Continue to reinforce assistance with all transfers.
Code Status:� DNR per patient
Dispo (date/plan/equipment needs): Home with family care.
Discharge Destination: Acute inpatient rehabilitation
Functional and Medical Goals: Modified Independent with ADL�s, ambulation, transfers
Summary of recommendations:
- Discharge Destination: Acute inpatient rehabilitation
Left MCA/PULLER THROUGH CVA s/p TNK and left carotid stent: Secondary prophylaxis with aspirin, starting Plavix 01/01 statin, and blood pressure control (SBP less than 180 and diastolic less than 100 to participate with therapy for ischemic stroke). Continue to
monitor neurologic status.
Right dominant hemiparesis: High risk for falls and sliding out of chair/bed. Safety reinforced.
- Avoid using affected arm to help lift or pull patient as this will cause trauma to the shoulder.
Right Neglect: makes patient at increased risk for falls.� Will need therapy to work on scanning of environment for safe navigation.
Dysphagia: speech, oral care protocol, aspiration precautions.� Advance to soft and bite sized diet as tolerated.
Dysarthria: speech
Aphasia: speech
Bowel: Colace and Senna, PRN bisacodyl.
Bladder: Time void, PVRs, PRN straight cath.
DVT Prophylaxis: Mechanical and heparin
Thank you for allowing me to care for your patient. Please contact me with any questions or concerns.
[2024-01-01 17:23] LABS: Glucose - Point of Care 106 mg/dl (70-99)
[2024-01-01] MEDS: LIPITOR 40 MG PO (17:28)
--- NOTE | 2024-01-01 17:33 | CON.NS ---
Consultation
-
Date/Time Consultation Performed: 01/01/2024; 17:35
Performing Provider: Ross
Chief Complaint
History of Present Illness
This is a neurosurgical consultation for 78-year-old female who presented on 12/28/2023, with acute onset of unresponsiveness, and right-sided weakness. Patient had a noncontrast head CT in the emergency room, and was given TNK. It was found that
the leg weakness improved. She was intensively taken to the angiography lab for intra-arterial thrombectomy. She underwent opening and stenting of the left ICA.
She was being monitored by medicine and neurology. She had an MRI of the brain on 12/29/2023 which demonstrated patchy areas of DWI hyperintensity, with gradient echo areas of hypointensity within the left frontal lobe. These were consistent with
likely hemorrhagic conversion of infarctions.
Yesterday, patient had acute change mental status, with a change in her NIH score. This prompted a repeat CT scan of the head which revealed ? New left frontal ICH.
Patient was transferred to the ICU, and had repeat CT scan of the head overnight, which demonstrated stability. Upon retrospective review of the hospital imaging, it was noted that likely this was blossoming/evolution of the hemorrhagic conversion
of the left frontal area of infarction.
Patient was on aspirin, Plavix, and Lovenox for DVT prophylaxis. Patient transferred out of ICU to the floor.
Patient seen and examined. Family is at bedside. Patient's family reports that her mental status significantly improved today compared with yesterday. Patient is eating dinner.
Review of Systems
-
10 point review systems was performed, which was constitutional, ENT, cardiovascular, respiratory, GI, , neurologic, endocrine, hematologic, psychiatric, musculoskeletal, and was negative, except for stated in HPI.
Medication and Allergies
Home Medications
Home Medications
�Medication �Instructions �Recorded
atorvastatin 10 mg tablet 10 mg PO QPM High Cholesterol 01/14/18
escitalopram oxalate 10 mg tablet 10 mg PO DAILY Mental 01/14/18
Health/Anxiety
famotidine 20 mg tablet 40 mg PO DAILY Gastrointestinal 01/14/18
Issue
lisinopril 20 mg tablet 20 mg PO DAILY Blood Pressure 01/14/18
metformin 500 mg tablet 500 mg PO BID Diabetes 01/14/18
Allergies
Allergies
Allergy/AdvReac Type Severity Reaction Status Date / Time
adhesive tape Allergy Unknown Rash Verified 01/14/18 19:57
ibuprofen Allergy Rash Verified 01/14/18 19:57
Penicillins Allergy Rash Verified 01/14/18 19:57
oxycodone [From Percocet] AdvReac Unknown Verified 01/14/18 19:57
food and environmental Allergy Unknown Uncoded 01/14/18 19:57
Physical Exam
-
Exam:
Awake and alert, no apparent distress
Head is normocephalic, atraumatic
Pupils are equal and reactive.
Extraocular movements are full
Right-sided hemiparesis, arm greater than leg. Strength is approximately 4+/5 diffusely. Right pronator drift
Speech: Mixed aphasia. Difficulty with naming. Able to follow simple commands.
Gait not tested
Neck is supple
Breathing unlabored
Regular rate and rhythm
Abdomen is soft
Extremities are warm, pulses palpable
PROCEDURE: CT Head W/o Iv Contrast
CLINICAL INDICATION: 78-year-old with change in neurologic status.
TECHNIQUE: Unenhanced computerized tomography of the head was performed. Automated dose reduction technique was employed.
COMPARISON: CT of the head from December 28, 2023. CT angiography of the head and neck from December 28, 2023. MRI of the brain from December 29, 2023.
FINDINGS: In the left frontal lobe, there is a small focal area of increased density compatible with acute hemorrhage. This has somewhat irregular morphology, measuring approximately 12 mm AP by 2.6 cm transverse by 1.9 cm craniocaudal. The
hemorrhage is heterogeneous, and perhaps along the peripheral margins of the region of infarction.
There is a larger area of decreased density adjacent to the hemorrhage within the anterior left frontal lobe, and this could represent decreased density from infarction, although there could also be a component of adjacent edema.
On recent MRI of the brain, there was likely a small amount of layering hemorrhage within the occipital horns of lateral ventricles, seen on T2 gradient echo series. On today's CT examination, no convincing evidence for high density hemorrhage
within the lateral ventricles.
There are patchy areas of decreased density involving the left frontal, parietal, and occipital lobes, corresponding to evolutionary changes of infarction in the distribution of the left middle cerebral artery.
There is no midline shift. The basilar cisterns appear maintained. No evidence for obstructive hydrocephalus.
Mild patchy mucosal thickening of the ethmoid sinuses. The rest of the visualized paranasal sinuses appear clear. The mastoid air cells appear clear.
IMPRESSION:
As described, there is a small focus of heterogeneous acute hemorrhage involving the anterior left frontal lobe, corresponding to region of presumed hemorrhagic infarct on MRI of the brain from December 29, 2023. Surrounding region of decreased density
compatible with decreased density from infarction and/or edema.
Evolutionary changes of infarction within the left hemisphere in the distribution of the left middle cerebral artery.
No significant midline shift.
Electronically signed by Fan Vidal MD 12/31/2023 8:02 PM
PROCEDURE: CT Head W/o Iv Contrast
CLINICAL INDICATION: brain Bleed
TECHNIQUE: Unenhanced computerized tomography of the head was performed. Automated dose reduction technique was employed.
COMPARISON: Previous day at 7:36 PM
Findings/impression:
Multifocal hypodensities related to infarcts are again demonstrated throughout the left cerebral hemisphere in the MCA and HEDDLE MACHINE OPERATOR distributions, similar to prior examination.
No significant change in left frontal parenchymal hemorrhage.
As before, there is subtle high attenuation thickening along the peripheral margin of the left tentorial leaflet (image 10-11 series 201 and image 27-28 series 202), likely small subdural hemorrhage.
No new mass effect, midline shift, or herniation.
The examination was performed after-hours on an emergency basis, with initial preliminary interpretation provided by [facility].
Electronically signed by Primitivo Conn MD 01/01/2024 8:38 AM
[employer] Dose Report: Up-to-date CT equipment and radiation dose reduction techniques were employed. CTDIvol: 58.1 mGy. DLP: 822 mGy-cm.
Dictated By: Fabien TATE,Primitivo Barney.
Dictated Date & Time: 01/01/24 0832
I reviewed the CT scans and agree with the report above. As stated, the area of hyperdensity within the left frontal lobe, was present on MRI of the brain on 12/29/2023, as demonstrated on the gradient echo sequences.
Problems
-
Problem Status Onset Code
Acute CVA (cerebrovascular accident) I63.9
Assessment / Plan
-
This is 78-year-old female that presented with acute left ICA occlusion/stroke, status post TNK, status post angioplasty, intra-arterial thrombectomy, and stent placement. Patient was noted to have change in mental status, change in NIH score
yesterday, which prompted CT scan, which revealed questionable new versus evolving left frontal hemorrhagic conversion of frontal stroke.
Patient's mental status is significantly improved today.
Therefore, no further cranial imaging is needed, unless examination changes.
Maintain normal blood pressures, but not to exceed greater than systolic blood pressure greater than 160 mmHg.
Continue with frequent neurological monitoring/checks.
Okay to continue with antiplatelet therapy, and DVT prophylaxis.
Follow-up with neurology.
No indication for urgent invasive neurosurgical intervention.
Will sign off, please call with questions.
[2024-01-01 21:30] LABS: Glucose - Point of Care 113 mg/dl (70-99)
[2024-01-02] VITALS (8 sets, daily range): BP systolic 54–161; BP diastolic 32–84; PULSE 54–75; O2SAT 98
--- NOTE | 2024-01-02 01:55 | PTCARENOTE ---
2300 orthostatic vital signs were positive. Standing bp was 52 sbp. Patient stated she was ' a little' dizzy. [facility] SONAR WATCHSTANDER made aware. Patient given call whitney and bed alarm placed.
[2024-01-02 06:30] LABS: Hematocrit 27.3 % (37.0-47.0); Hemoglobin 9.2 g/dL (12.0-16.0); Mean Corp Hgb Conc. 33.7 g/dL (33.0-37.0); Mean Corpuscular Hgb 30.6 pg (27.0-31.0); Mean Corpuscular Volume 90.7 fL (81.0-99.0); Mean Platelet Volume 9.6 fL (7.4-10.4); Platelet Count 183 10^3/uL (130-400); Red Blood Cell Count 3.01 10^6/uL (4.20-5.40); Red Cell Dist. Width 12.1 % (11.5-14.5); White Blood Cell Count 8.2 10^3/uL (4.8-10.8)
[2024-01-02 06:58] LABS: Blood Urea Nitrogen 30 mg/dl (7-17); Calcium 9.1 mg/dl (8.4-10.2); Carbon Dioxide 22 mmol/L (22-30); Chloride 108 mmol/L (98-107); Estimated Creatinine Clearance 41 ml/min; Glucose 95 mg/dl (70-99); Sodium 137 mmol/L (135-145); eGFR 58.39
[2024-01-02 07:34] LABS: Glucose - Point of Care 103 mg/dl (70-99)
--- NOTE | 2024-01-02 08:49 | W.PN.NEURO.1 ---
Addendum entered and electronically signed by Heath Collazo MD 01/02/24 13:55:
I saw and evaluate the patient I reviewed the note by Samantha Santillan agree with the findings the following:
78-year-old woman who presented to the hospital with left MCA stroke syndrome and had left internal carotid artery occlusion status post stenting which was successful. Has developed a left frontal intracranial hemorrhage which has been stable with
no signs of serious deterioration.
No acute events overnight patient with no complaints only minor headache is present.
Neurologic examination shows some difficulty with complex commands and some very minimal aphasia mild right facial asymmetry, no pronator drift seen on this examination.
Recommendations
-Would add back clopidogrel today given the presence of carotid artery stent, continue DAPT therapy which will be for at least 3 months post stent
-Close neurologic monitoring NIH and neurologic check
-Would maintain systolic blood pressure goal less than 140 maximum
-Minimize sedating medications
-Speech physical Occupational Therapy evaluations
-Plan for acute rehab soon
-Continue Atorvastatin 40 mg daily
Will follow as needed call with questions and concerns
Original Note:
Documented by User: Samantha Bobby NP 01/02/24 13:25
Today's Communication / Plan
-
.
Neuro Assessment/Plan
Assessment
Abrupt onset of acute ischemic stroke
Most likely due to left internal carotid artery occlusion. Patient completed both tenecteplase and stenting successfully
Orthostatic vital signs significantly positive
MRI with expected left MCA territory ischemic stroke
Small amount of left frontal petechial hemorrhage then expanded left hemorrhage by repeated CT head 01/01/2024
Etiology of stroke is felt most likely atheroembolic from diabetes and hypertension producing occlusion of left carotid artery
Plan
-Continue aspirin 81mg daily. Okay to restart Plavix 75mg daily today (01/02/24).
-Goal normotension. DALY stockings, abdominal binder, slow position changes, and increased fluid intake for orthostasis.
-Continue checking orthostatic vital signs BID.
-LDL goal <70. LDL is 45. Continue home atorvastatin 40mg daily as LDL is at goal.
-Goal normoglycemia, hbA1c is 6.4.
-NIHSS and neurological checks per unit guidelines.
-Patient/family provided with a stroke education packet.
-PT/OT/ST evaluations.
-DVT prophylaxis.
-Patient should follow-up with Neurology as an outpatient in 4-6 weeks, may see the SENIOR TECHNICAL SUPPORT ENGINEER or one of the physicians.
Subjective/Objective
Subjective Data
Date of Service: January 02, 2024
Patient still with hypotension. No acute events overnight. DAFNE full ROS due to aphasia, denies any headache/dizziness.
Objective Data
Vital Signs
Temp Pulse Resp BP Pulse Ox
97.6 F 68 16 94/55 96
01/01/24 23:37 01/01/24 23:37 01/01/24 23:37 01/01/24 23:37 01/01/24 23:37
Lab Results
01/02/24 05:17
01/02/24 05:17
PT 14.0 Sec (11.4-14.6) 12/29/23 04:06
INR 1.10 12/29/23 04:06
APTT 29.4 Sec (23.4-35.0) 12/29/23 04:06
Sodium 137 mmol/L (135-145) 01/02/24 05:17
Potassium 4.0 mmol/L (3.5-5.1) 01/02/24 05:17
BUN 30 mg/dl (7-17) H 01/02/24 05:17
Glucose 95 mg/dl (70-99) 01/02/24 05:17
Calcium 9.1 mg/dl (8.4-10.2) 01/02/24 05:17
Phosphorus 3.7 mg/dl (2.5-4.5) 12/29/23 04:06
LDL Cholesterol, Calc 45 mg/dl 12/29/23 04:06
Vitamin B12 301 pg/ml (222-461) 12/28/23 18:54
Patient Allergies
adhesive tape Allergy (Unknown, Verified 01/14/18 19:57)
Rash
ibuprofen Allergy (Verified 01/14/18 19:57)
Rash
Penicillins Allergy (Verified 01/14/18 19:57)
Rash
oxycodone [From Percocet] Adverse Reaction (Verified 01/14/18 19:57)
Unknown
food and environmental Allergy (Uncoded 01/14/18 19:57)
Unknown
LDL Level: <70, continue statin
Review of Systems
-
Unable to obtain full review of systems at this time due to: Aphasia
History Source: Patient
Neuro: Speech Problem; Negative Dizzy, Headache, Weakness, Numbness or Ataxia
Physical Exam
-
General: Well Developed, Well Nourished and No Apparent Distress
Eyes: No Ptosis and PERRLA
HEENT: Normocephalic and Atraumatic
Neck: Full Range of Motion
Respiratory: No Dyspnea
GI: Non-distended
Extremities: No Clubbing, No Cyanosis and No Edema
Psych: Unremarkable
Extended Neurological Exam
Mood & Affect: Mood Unremarkable and Affect Unremarkable
Attention Span & Concentration: Awake, Alert, Interactive and Severe Difficulty with 2 Step Request
Memory: Reduced (oriented to self, place, no time. challenging to assess due to aphasia)
Tremor: Hand Tremor Absent and Head Tremor Absent
Involuntary Movement: None
Speech: Expressive Aphasia, Receptive Aphasia and Moderately Reduced Output
Cranial Nerve II: Left Eye: Pupillary Reactivity Unremarkable, Pupillary Size Unremarkable and Visual Bacon Reduced (challenging to assess, appear reduced mildly on the R)
Cranial Nerve II: Right Eye: Pupillary Reactivity Unremarkable, Pupillary Size Unremarkable and Visual Bacon Reduced (challenging to assess, appear reduced mildly on the R)
Cranial Nerves III, IV, : Extraocular Movement: Extraocular Movement Full in all Directions
Cranial Nerve V: Facial Sensation: Intact to Light Touch
Cranial Nerve VII: Facial Symmetry: Reduced (slight right facial drooping)
Cranial Nerve VIII: Hearing: Unremarkable Hearing to Normal Conversational Volume
Cranial Nerves IX, X: Palate Movement: Palate Elevation Symmetric
Cranial Nerve XI: Shoulder Shrug: Unremarkable and Unable to Assess
Cranial Nerve XII: Tongue Protusion: Midline
Muscle Strength, Overall: Full Throughout
Muscle Bulk & Tone: Bulk Unremarkable and Tone Unremarkable
Pronator Drift: No Drift in Upper Extremities and No Drift in Lower Extremities
Touch Sensation: Double Simultaneous Stimulation Unremarkable
Coordination: Qckkab-fmli-cijwnj Testing Unremarkable
Babinski Sign: Absent Bilaterally
Modified Mike Score (MRS)
-
Modified Mike Scale (mRS): Moderate disability. Requires some help, able to walk unassisted.
Score: 3
Data Reviewed
-
CT-A: Report Reviewed and Image Reviewed
CT Head: Report Reviewed and Image Reviewed
MRI Head: Report Reviewed and Image Reviewed
Echocardiogram: Report Reviewed
Orthostatic Testing: Report Reviewed
Labs: Report Reviewed
Lipid Profile: Report Reviewed
HgbA1C: Report Reviewed
Reviewed with: Physician and Patient
Medications
-
Active Medications
Generic Name Dose Route Start Last Admin
Trade Name Freq PRN Reason Stop Dose Admin
Acetaminophen 650 mg 12/28/23 20:45 01/01/24 10:41
Acetaminophen 325 Mg Tablet PO 01/25/24 20:44 650 mg
Q4HPRN PRN Administration
TAMEZ, mild pain, or temp >100.4F
Aspirin 81 mg 01/01/24 11:00 01/01/24 11:16
Aspirin 81 Mg Chewable Tablet PO 01/29/24 10:59 81 mg
DAILY FRIEDA Administration
Atorvastatin Calcium 40 mg 12/29/23 18:00 01/01/24 17:28
Atorvastatin (Lipitor) 40 Mg Tablet PO 01/26/24 17:59 40 mg
QPM FRIEDA Administration
Dextrose 12.5 grams 12/28/23 20:45
Dextrose 50% (0.5 Grams/Ml) 50 Ml Syringe IV 01/25/24 20:44
[id number] PRN
hypoglycemia
Protocol
Escitalopram Oxalate 10 mg 12/31/23 08:00 01/01/24 08:14
Escitalopram 10 Mg Tablet PO 01/28/24 07:59 10 mg
DAILY FRIEDA Administration
Famotidine 40 mg 12/31/23 08:00 01/01/24 08:14
Famotidine 40 Mg Tablet PO 01/28/24 07:59 40 mg
DAILY FRIEDA Administration
Glucagon 1 mg 12/28/23 20:45
Glucagon 1 Mg Vial IM 01/25/24 20:44
PRN PRN
hypoglycemia
Protocol
Heparin Sodium 5,000 units 01/01/24 16:00 01/01/24 23:18
Heparin 5,000 Units/Ml 1 Ml Vial SC 01/29/24 15:59 5,000 units
Q8 FRIEDA Administration
Insulin Aspart 0 units 12/30/23 10:32 01/02/24 08:26
Insulin Aspart Low Resistance 300 Units/3 Ml Pen.Injctr SC 01/26/24 00:00 Not Given
AC FRIEDA
Protocol
Lidocaine 1 patch 12/29/23 10:00 01/01/24 08:13
Lidocaine 4% Topical Patch TOPICAL 01/26/24 09:59 1 patch
DAILY FRIEDA Administration
Metformin HCl 500 mg 12/30/23 17:00 01/01/24 17:28
Metformin 500 Mg Regular Release Tablet PO 01/27/24 16:59 500 mg
BID@0800,1700 FRIEDA Administration
Ondansetron HCl 4 mg 12/29/23 00:53 12/29/23 13:35
Ondansetron 4 Mg/2 Ml Vial IV 01/26/24 00:52 4 mg
Q6HPRN PRN Administration
NAUSEA/VOMITING
Sodium Chloride 0 flush 12/28/23 21:00
Sodium Chloride 0.9% (Flush) Syringe IV 01/25/24 20:59
PER PROTOCOL FRIEDA
Home Medications
�Medication �Instructions �Recorded
atorvastatin 10 mg tablet 10 mg PO QPM High Cholesterol 01/14/18
escitalopram oxalate 10 mg tablet 10 mg PO DAILY Mental 01/14/18
Health/Anxiety
famotidine 20 mg tablet 40 mg PO DAILY Gastrointestinal 01/14/18
Issue
lisinopril 20 mg tablet 20 mg PO DAILY Blood Pressure 01/14/18
metformin 500 mg tablet 500 mg PO BID Diabetes 01/14/18
NIH Stroke Score
Subsequent NIH Scale
Date of Subsequent NIH Scale: 01/02/24
Time of Subsequent NIH Scale: 08:30
NIH Stroke Score
Level of Consciousness: 1 - Arousable
LOC Questions: 1-Answers one correctly
LOC Commands: 0-Performs both correctly
Best Horizontal Gaze: 0-Normal
Visual Bacon: 1=Partial hemianopia
Facial Palsy: 1=Minor paralysis
Motor - Right Arm: 0=No drift 10 seconds
Motor - Left Arm: 0=No drift 10 seconds
Motor - Right Le-No drift 5 seconds
Motor - Left Le-No drift 5 seconds
Limb Ataxia: 0-Absent
Sensation: 0-Normal
Best Language: 1-Mild aphasia
Dysarthria: 0-Normal
Extinction and Inattention: 0-No abnormality
Total Score:: 5
Modified Brewster (mRS) Score
Modified Mike Scale (mRS): Moderate disability. Requires some help, able to walk unassisted.
Score: 3

Documented by User: Heath Collazo MD 01/02/24 13:52
Modified Brewster Score (MRS)
-
Score: 3
NIH Stroke Score
NIH Stroke Score
Total Score:: 5
Modified Mike (mRS) Score
Score: 3
--- NOTE | 2024-01-02 09:40 | W.PN.HOSP.TC ---
Today's Communication/Plan
-
Discharge to acute rehab tomorrow
Assessment / Plan
Assessment / Plan
HPI: 76-year-old female with history of diabetes, hypertension, dyslipidemia, p/w collapse, decreased level of consciousness with weakness of the right side at a community event.
She was noted to be weaker in the right extremity.
Her stat CT head did not show abnormality so TNK was given per recommendation of neurology with the ER physician.
Her CTA head showed complete occlusion of the left internal carotid artery. She was taken straight to the drop crew laborer and had successful stenting of the proximal left internal carotid artery by Dr. Tong.
A/P:
# Acute metabolic encephalopathy with Right-sided weakness due to Acute stroke
S/p TNK on admission 12/26
Appreciate neurology and group leader wafer polishing input, goal of normotension
LDL 45, continue atorvastatin 40 mg nightly, A1C 6.4
SPL/PT/OT eval, she is tolerating mechanical soft diet
Okay for subcu heparin for DVT prophylaxis 24 hours after TNK per neuro
Plan for dc to acute rehab tomorrow
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
S/p stent placement of L internal carotid artery on admission
Status post dopamine drip
Continue aspirin, resume Plavix 01/01 secondary to subdural hematoma
#Subdural hematoma
#Acute blood loss anemia secondary to subdural hematoma
Appreciate neurology input, okay to continue aspirin 81 mg today, subcu heparin for DVT prophylaxis
Neurology recommends resuming Plavix 75 mg daily 01/01
Seen by neuro surg, no intervention or further imaging needed
Hgb stable, continue to trend
#Dehydration
Improved s/p IVFs
#Glucose intolerance
Hemoglobin A1c 6.4
Continue home metformin
# Dyslipidemia
Continue statin
# Incidental finding of a 9 mm nodule in the left upper lobe from CT angio
Recommend outpt follow-up with chest CT with contrast when more medically stable, family informed
# Occlusion of the right coronary artery
DVT prophylaxis�subcu heparin
DNR/DNI
Updated family at bedside 01/01
Total time spent to see the patient on the floor, examine the patient, review data and lab results, discuss treatment plan with patient, nursing staff around 35 minutes.
Physical Exam
General: No acute distress
HEENT: Normocephalic, Atraumatic, EOMI, MMM
Respiratory: Clear to Auscultation bilaterally
Cardiac: Normal S1/S2, Regular Rate and Rhythm
GI: Soft, Nontender, Nondistended, Normal Bowel Sounds
Extremities: No Clubbing, Cyanosis, or Edema
Neuro: Right-sided weakness
Anticipated Discharge: Within 24 hours
Subjective/Interval History
-
Date of Service: January 01, 2024
Continues to improve
Objective Data
-
Labs:
Laboratory Results
01/01/24
04:45
WBC 9.0
Hgb 9.4 L
Hct 27.6 L
Plt Count 153
Sodium 135
Potassium 4.3
Chloride 107
Carbon Dioxide 21 L
BUN 36 H
Creatinine 1.1 H
Glucose 106 H
Calcium 9.2
Vital Signs:
Vital Signs
Temp Pulse Resp BP Pulse Ox
98.7 F 56 17 99/51 98
01/01/24 12:38 01/01/24 12:38 01/01/24 12:38 01/01/24 12:38 01/01/24 12:38
I&O
12/31/23 01/01/24 01/02/24
06:59 06:59 06:59
Intake Total 319.8 / 333.1 50.9 / 50.9 480 / 480
Output Total 500 / 500 300 / 300
Balance -180.2 / -166.9 -249.1 / -249.1 480 / 480
[2024-01-02] MEDS: LOW STRENGTH ASPIRIN 81 MG PO (09:46)
[2024-01-02] MEDS: GLUCOPHAGE 500 MG PO ×2 (09:46→17:20)
[2024-01-02] MEDS: LEXAPRO 10 MG PO (09:46)
[2024-01-02] MEDS: PEPCID 40 MG PO (09:46)
[2024-01-02] MEDS: HEPARIN 5000 UNITS SC ×2 (09:47→19:06)
[2024-01-02] MEDS: LIDOCAINE 4% PATCH 1 PATCH TOPICAL (09:47)
[2024-01-02] MEDS: PLAVIX 75 MG PO (10:15)
[2024-01-02 12:27] LABS: Glucose - Point of Care 90 mg/dl (70-99)
--- NOTE | 2024-01-02 12:28 | CM ---
Addendum entered by Jemima Quan 01/02/24 13:42:
Met with daughter Aria sue.
IMM completed.
Patient for transfer to [facility] tomorrow.
Original Note:
Peyton Melton from [place] updated that patient iwllbe ready for transfer to Rehab tomorrow.
[2024-01-02] MEDS: LIPITOR 40 MG PO (17:20)
[2024-01-02 17:21] LABS: Glucose - Point of Care 112 mg/dl (70-99)
[2024-01-02 21:25] LABS: Glucose - Point of Care 122 mg/dl (70-99)
[2024-01-03 07:00] VITALS: BP 125/52
[2024-01-03 07:06] LABS: Hematocrit 26.2 % (37.0-47.0); Hemoglobin 9.1 g/dL (12.0-16.0); Mean Corp Hgb Conc. 34.7 g/dL (33.0-37.0); Mean Corpuscular Hgb 30.5 pg (27.0-31.0); Mean Corpuscular Volume 87.9 fL (81.0-99.0); Mean Platelet Volume 9.4 fL (7.4-10.4); Platelet Count 215 10^3/uL (130-400); Red Blood Cell Count 2.98 10^6/uL (4.20-5.40); Red Cell Dist. Width 12.1 % (11.5-14.5); White Blood Cell Count 7.3 10^3/uL (4.8-10.8)
[2024-01-03 07:48] LABS: Blood Urea Nitrogen 22 mg/dl (7-17); Calcium 9.3 mg/dl (8.4-10.2); Carbon Dioxide 24 mmol/L (22-30); Chloride 108 mmol/L (98-107); Estimated Creatinine Clearance 41 ml/min; Glucose 97 mg/dl (70-99); Potassium 4.1 mmol/L (3.5-5.1); Sodium 135 mmol/L (135-145); eGFR 58.39
[2024-01-03 07:54] LABS: Glucose - Point of Care 117 mg/dl (70-99)
--- NOTE | 2024-01-03 08:45 | W.PN.HOSP.TC ---
Today's Communication/Plan
-
Discharge to acute rehab today
Assessment / Plan
Assessment / Plan
HPI: 76-year-old female with history of diabetes, hypertension, dyslipidemia, p/w collapse, decreased level of consciousness with weakness of the right side at a community event.
She was noted to be weaker in the right extremity.
Her stat CT head did not show abnormality so TNK was given per recommendation of neurology with the ER physician.
Her CTA head showed complete occlusion of the left internal carotid artery. She was taken straight to the laboratory associate and had successful stenting of the proximal left internal carotid artery by Dr. Tong.
A/P:
# Acute metabolic encephalopathy with Right-sided weakness due to Acute stroke
S/p TNK on admission 12/26
Appreciate neurology and gi tech input, goal of normotension
LDL 45, continue atorvastatin 40 mg nightly, A1C 6.4
SPL/PT/OT eval, she is tolerating mechanical soft diet
Okay for subcu heparin for DVT prophylaxis 24 hours after TNK per neuro
Medically stable for discharge to acute rehab today
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
S/p stent placement of L internal carotid artery on admission
Status post dopamine drip
Continue aspirin, resumed Plavix 01/01 secondary to subdural hematoma
Follow-up with usual tile grinder outpatient
#Subdural hematoma
#Acute blood loss anemia secondary to subdural hematoma
Appreciate neurology input, okay to continue aspirin 81 mg, subcu heparin for DVT prophylaxis
Neurology recommends resuming Plavix 75 mg daily 01/01
Seen by neuro surg, no intervention or further imaging needed
Hgb stable, continue to trend
#Benign essential hypertension
Patient was previously on lisinopril 20 mg daily
This has been held secondary to low blood pressure
Her blood pressure is trending up, will resume at decreased dose of 10 mg daily
#Dehydration
Improved s/p IVFs
#Glucose intolerance
Hemoglobin A1c 6.4
Continue home metformin
# Dyslipidemia
Continue statin
# Incidental finding of a 9 mm nodule in the left upper lobe from CT angio
Recommend outpt follow-up with chest CT with contrast when more medically stable, family informed
# Occlusion of the right coronary artery
DVT prophylaxis�subcu heparin
DNR/DNI
Updated family at bedside 01/02
Physical Exam
General: No acute distress
HEENT: Normocephalic, Atraumatic, EOMI, MMM
Respiratory: Clear to Auscultation bilaterally
Cardiac: Normal S1/S2, Regular Rate and Rhythm
GI: Soft, Nontender, Nondistended, Normal Bowel Sounds
Extremities: No Clubbing, Cyanosis, or Edema
Neuro: Right-sided weakness
Anticipated Discharge: Today
Subjective/Interval History
-
Date of Service: January 03, 2024
Patient feels well today. No lightheadedness, no dizziness. No dysphagia. No fever, no vomiting.
Objective Data
-
Labs:
Laboratory Results
01/03/24
06:22
WBC 7.3
Hgb 9.1 L
Hct 26.2 L
Plt Count 215
Sodium 135
Potassium 4.1
Chloride 108 H
Carbon Dioxide 24
BUN 22 H
Creatinine 1.0
Glucose 97
Calcium 9.3
Vital Signs:
Vital Signs
Temp Pulse Resp BP Pulse Ox
98.5 F 58 18 125/52 96
01/03/24 07:00 01/03/24 07:00 01/03/24 07:00 01/03/24 07:00 01/03/24 07:00
I&O
01/02/24 01/03/24 01/04/24
06:59 06:59 06:59
Intake Total 1290 / 1290 600 / 600
Balance 1290 / 1290 600 / 600
[2024-01-03] MEDS: HEPARIN 5000 UNITS SC (09:51)
[2024-01-03] MEDS: LIDOCAINE 4% PATCH 1 PATCH TOPICAL (09:51)
[2024-01-03] MEDS: PLAVIX 75 MG PO (09:54)
[2024-01-03] MEDS: LOW STRENGTH ASPIRIN 81 MG PO (09:54)
[2024-01-03] MEDS: PEPCID 40 MG PO (09:54)
[2024-01-03] MEDS: GLUCOPHAGE 500 MG PO ×2 (09:54→16:05)
[2024-01-03] MEDS: LEXAPRO 10 MG PO (09:54)
[2024-01-03 11:00] VITALS: BP 119/49; BP 135/55; BP 142/51; PULSE 56; PULSE 60; PULSE 67
[2024-01-03 12:01] LABS: Glucose - Point of Care 118 mg/dl (70-99)
--- NOTE | 2024-01-03 13:11 | CM ---
Addendum entered by Tatiana Luz 01/03/24 14:37:
IMM benefit explained to son @ bedside; form signed @ 1430
[place] bed available
Plan: Discharge to [facility] via stretcher
Report # [id number]
Addendum entered by Tatiana Luz 01/03/24 13:13:
Attending and Carton Wrapper notified
Original Note:
Plan: Discharge to [facility] today
[2024-01-03 15:00] VITALS: BP 137/57
--- NOTE | 2024-01-03 15:29 | W.DCSUMMARY ---
Discharge Summary
Discharge Data
Date of Admission: 12/28/23
Date of Discharge: 01/03/24
-
Pending Results: No
Hospital Course
Discharge diagnosis:
Acute left-sided stroke status post thrombolytics
Complete occlusion of the left internal carotid artery status post and placement
Acute subdural hematoma
Acute blood loss anemia secondary to subdural hematoma
Benign essential hypertension
Dehydration
Glucose intolerance
Hyperlipidemia
Incidental left upper lobe thyroid nodule
Consults: Interventional cardiology, neurology, neurosurgery
Brain MRI:
Limited examination due to patient motion.
Areas of acute infarcts in the left frontal, frontal parietal and parietal occipital region. Mild associated vasogenic edema.
Small amount of hemorrhage associated with the infarct in the left frontal region. No significant mass effect or edema.
Moderate diffuse volume loss. Moderate leukoaraiosis.
Head CT:
Findings/impression:
Multifocal hypodensities related to infarcts are again demonstrated throughout the left cerebral hemisphere in the MCA and INSULATION TECHNICIAN distributions, similar to prior examination.
No significant change in left frontal parenchymal hemorrhage.
As before, there is subtle high attenuation thickening along the peripheral margin of the left tentorial leaflet (image 10-11 series 201 and image 27-28 series 202), likely small subdural hemorrhage.
No new mass effect, midline shift, or herniation.
12/28/2023
Left ICA stent placement
Hospital course:
78-year-old female with a past medical history of diabetes, hypertension, and hyperlipidemia presented with right sided weakness. Head CT in the ER was negative, stroke alert was called, and she received thrombolytics. Head CT showed complete
occlusion of the left internal carotid artery. She had stenting of the left ICA by Dr. Tong.
Patient was seen in conjunction with the unemployment claims adjudicator, and monitored in the ICU. Her blood pressure was low. She was treated with a dopamine drip, aspirin 81 mg daily, and Plavix 75 mg daily. Brain MRI with findings of acute left-sided stroke as
above. After several days, she was weaned off of the dopamine drip. She was transferred out of the ICU.
Her hospital course was complicated by a small subdural hematoma. She was seen in conjunction with neurosurgery, no intervention or repeat imaging is needed. Neurology states she can continue her aspirin 81 mg daily, as well as subcu heparin for
DVT prophylaxis. Her Plavix was held for 1 day, and was resumed on 01/02/2024.
Patient also had acute mild blood loss anemia from her subdural hematoma. Her hemoglobin was monitored, and remained stable at 9.1 on the day of discharge.
Patient's LDL is 45, she can continue atorvastatin 40 mg nightly. Her hemoglobin A1c is 6.4, she is continued on her home metformin.
Patient has a history of hypertension, her lisinopril 20 mg daily was held. Her blood pressure improved, and increased prior to discharge. Her lisinopril was resumed at a decreased dose of 10 mg daily.
Patient was seen by PT and physiatry, who recommended acute rehab. She is medically stable for discharge to acute rehab.
Disposition: Acute rehab
Discharge planning: Required 40 minutes
Discharge Plan
-
Patient Disposition: Acute Rehab Facility
Discharge Diagnosis/Procedures: Acute stroke status post thrombolytics, complete occlusion of the left internal carotid artery status post stent, subdural hematoma, incidental left upper lung lobe nodule
Condition: Good
Diet: Chop all food
Additional Diets: Mechanical soft diet
Activity: As tolerated
Others Tests: Chest CT with contrast to further evaluate the incidental 9 mm nodule in the left upper lobe- this can be arranged by your PCP or a licensed embalmer supervisor.
Activity Restrictions/Additional Instructions:
You had complete occlusion of your left internal carotid artery. This was stented.
You need to take aspirin and Plavix for at least 3 months.
Please follow-up with cardiology in 3-4 weeks.
Your blood pressure in the hospital was on the low side.
We recommend reducing your lisinopril to 10 mg daily.
You were previously on 20 mg daily.
Please follow-up with your primary care doctor 1 week after you leave rehab.
Please follow-up with pulmonology in the office in 4 weeks for monitoring of your lung nodule.
Referrals:
Marquez Tineo MD [Active] - in three to four weeks
Quan Cruz MD [Active] - in four to six weeks
UNKNOWN - PT NOT,INTERVIEWE [Family Provider] -
Prescriptions:
New
atorvastatin 40 mg Tablet
40 mg PO QPM Qty: 0 0RF
lidocaine 4 % Adhesive Patch,Medicated
1 patch topical DAILY Qty: 0 0RF
Rx Instructions:
lower back pain
clopidogrel 75 mg Tablet
75 mg PO DAILY Qty: 0 0RF
aspirin [Children's Aspirin] 81 mg Tablet,Chewable
81 mg PO DAILY Qty: 0 0RF
Continued
metformin 500 MG tablet
500 mg PO BID
famotidine 20 MG tablet
40 mg PO DAILY
escitalopram oxalate 10 MG tablet
10 mg PO DAILY
Changed
lisinopril 20 MG tablet
10 mg PO DAILY Qty: 0 0RF
Discontinued
atorvastatin 10 MG tablet
10 mg PO QPM
Discharge Orders:
Discharge Patient (As Directed); Ordered 01/03/24
Ordered By: Shabibr Clark
Discharge Date and Time
Discharge Date/Time: 01/03/24 17:04
Print Language: SINHALA
[2024-01-03] MEDS: ZESTRIL 10 MG PO (16:05)
== END 2024-01-03 17:04 | DRG 34 ==
LOC: 4 WEST ACU 19:42
PROVIDERS: Internal Medicine; ADMITTING PHYSICIAN Internal Medicine; ATTENDING PHYSICIAN Family Medicine; CONSULT PHYSICIAN Internal Medicine Critical Care Medicine; CONSULT PHYSICIAN Physical Medicine & Rehabilitation; CONSULT PHYSICIAN Psychiatry & Neurology Neurology; EMERGENCY PHYSICIAN Emergency Medicine; OTHER PHYSICIAN Neurological Surgery
PROC: B3181ZZ Fluoroscopy of Bilateral Internal Carotid Arteries using Low Osmolar Contrast (ICD-10-PCS; 2023-12-28)
PROC: B31C1ZZ Fluoroscopy of Bilateral External Carotid Arteries using Low Osmolar Contrast (ICD-10-PCS; 2023-12-28)
PROC: B3151ZZ Fluoroscopy of Bilateral Common Carotid Arteries using Low Osmolar Contrast (ICD-10-PCS; 2023-12-28)
PROC: 037L3DZ Dilation of Left Internal Carotid Artery with Intraluminal Device, Percutaneous Approach (ICD-10-PCS; 2023-12-28)
PROC: 3E03317 Introduction of Other Thrombolytic into Peripheral Vein, Percutaneous Approach (ICD-10-PCS; 2023-12-28)
DX: I63.232 Cerebral infarction due to unspecified occlusion or stenosis of left carotid arteries (principal); G93.41 Metabolic encephalopathy; I62.00 Nontraumatic subdural hemorrhage, unspecified; G81.91 Hemiplegia, unspecified affecting right dominant side; N17.9 Acute kidney failure, unspecified; D62 Acute posthemorrhagic anemia; F32.A Depression, unspecified; Z66 Do not resuscitate; E78.00 Pure hypercholesterolemia, unspecified; E11.9 Type 2 diabetes mellitus without complications; I10 Essential (primary) hypertension; R91.1 Solitary pulmonary nodule; R47.01 Aphasia; R47.1 Dysarthria and anarthria; R13.10 Dysphagia, unspecified; E86.0 Dehydration; E04.1 Nontoxic single thyroid nodule; Z79.84 Long term (current) use of oral hypoglycemic drugs; I65.21 Occlusion and stenosis of right carotid artery; Z79.899 Other long term (current) drug therapy; Z82.49 Family history of ischemic heart disease and other diseases of the circulatory system; Z82.3 Family history of stroke; Z91.81 History of falling; Z98.1 Arthrodesis status
CPT/HCPCS: 36223; 37215; 70450; 70496; 70498; 70551; 71045; 80048; 80053; 80061; 82607; 82728; 82746; 82962; 83036; 83735; 84100; 84443; 85025; 85027; 85347; 85610; 85652; 85730; 92507; 92523; 92526; 92610; 93005; 93306; 93880; 96361; 96374; 97112; 97116; 97163; 97167; 97530; 97535; 99291; C1725; C1769; C1876; C1884; C1894; J3101; Q9967

== ENCOUNTER 2024-02-20 11:05 | Outpatient (RCR) | payer MEDICARE, BC, SELFPAY | END 2024-02-20 23:59 | disposition home or self-care (01) | LOC: RST 11:05 | PROVIDERS: ATTENDING PHYSICIAN Physical Medicine & Rehabilitation; FAMILY PHYSICIAN Family Medicine | DX: I69.320 Aphasia following cerebral infarction (principal); I10 Essential (primary) hypertension; I69.351 Hemiplegia and hemiparesis following cerebral infarction affecting right dominant side | CPT/HCPCS: 92507; 92523; 97110; 97112; 97116; 97140; 97163; 97167; 97530; 97535 ==

== ENCOUNTER → 2024-03-02 12:38 | Outpatient (REF) | payer MEDICARE, BC, SELFPAY | LOC: HWRAD 12:38 | PROVIDERS: ATTENDING PHYSICIAN Nurse Practitioner Adult Health; FAMILY PHYSICIAN Family Medicine | DX: R91.1 Solitary pulmonary nodule (principal) | CPT/HCPCS: 71250 ==

== ENCOUNTER → 2024-03-13 09:00 | Outpatient (REF) | payer MEDICARE, BC, SELFPAY | LOC: DHSLP 09:00 | PROVIDERS: ATTENDING PHYSICIAN Internal Medicine Critical Care Medicine | DX: G47.33 Obstructive sleep apnea (adult) (pediatric) (principal) | CPT/HCPCS: 95800 ==

== ENCOUNTER 2024-03-20 13:51 | Outpatient (RCR) | payer MEDICARE, BC, SELFPAY | END 2024-03-20 23:59 | disposition home or self-care (01) | LOC: RST 13:51 | PROVIDERS: ATTENDING PHYSICIAN Physical Medicine & Rehabilitation; FAMILY PHYSICIAN Family Medicine | DX: I69.398 Other sequelae of cerebral infarction (principal); Z73.6 Limitation of activities due to disability; I69.320 Aphasia following cerebral infarction | CPT/HCPCS: 92507; 97110; 97112; 97116; 97530; 97535 ==

== ENCOUNTER 2024-03-30 07:09 | Day surgery (SDC) | payer MEDICARE, BC, SELFPAY ==
[2024-03-30] VITALS (11 sets, daily range): BP systolic 100–144; BP diastolic 37–92; BMI 24.4
--- NOTE | 2024-03-30 09:17 | SUR.PHASEI ---
Error in documentation from [id number], unable to delete PACU charting in [facility].
[2024-03-30 11:00] LABS: Glucose - Point of Care 126 mg/dl (70-99)
[2024-03-30 13:33] LABS: Glucose - Point of Care 121 mg/dl (70-99)
== END 2024-03-30 15:18 | disposition home or self-care (01) ==
LOC: SDS 07:09
PROVIDERS: ATTENDING PHYSICIAN Internal Medicine Critical Care Medicine
DX: R91.1 Solitary pulmonary nodule (principal)
CPT/HCPCS: 31629; 31654; 31627; 31624; 88172; 88173; 88305; 71045; 76000; 82962; 88112; 88177; 94640; C1887

== ENCOUNTER 2024-04-22 14:27 | Outpatient (RCR) | payer MEDICARE, BC, SELFPAY | END 2024-04-22 23:59 | disposition home or self-care (01) | LOC: RST 14:27 | PROVIDERS: ATTENDING PHYSICIAN Physical Medicine & Rehabilitation; FAMILY PHYSICIAN Family Medicine | DX: I69.320 Aphasia following cerebral infarction (principal); I10 Essential (primary) hypertension; I69.351 Hemiplegia and hemiparesis following cerebral infarction affecting right dominant side | CPT/HCPCS: 92507; 97530; 97535 ==

== ENCOUNTER → 2024-08-24 10:48 | Outpatient (REF) | payer MEDICARE, BC, SELFPAY | LOC: HWRAD 10:48 | PROVIDERS: ATTENDING PHYSICIAN Radiology Radiation Oncology; FAMILY PHYSICIAN Internal Medicine | DX: R91.1 Solitary pulmonary nodule (principal) | CPT/HCPCS: 71250 ==

== ENCOUNTER → 2024-11-19 12:39 | Outpatient (REF) | payer MEDICARE, BC, SELFPAY | LOC: HWRAD 12:39 | PROVIDERS: ATTENDING PHYSICIAN Internal Medicine Critical Care Medicine; FAMILY PHYSICIAN Family Medicine; REFERRING PHYSICIAN Radiology Radiation Oncology | DX: R91.1 Solitary pulmonary nodule (principal) | CPT/HCPCS: 71250 ==

== ENCOUNTER → 2025-02-15 13:37 | Outpatient (REF) | payer MEDICARE, BC, SELFPAY | LOC: RAD 13:37 | PROVIDERS: ATTENDING PHYSICIAN Internal Medicine Cardiovascular Disease; FAMILY PHYSICIAN Family Medicine; REFERRING PHYSICIAN Radiology Diagnostic Radiology | DX: I63.232 Cerebral infarction due to unspecified occlusion or stenosis of left carotid arteries (principal) | CPT/HCPCS: 93880 ==

== ENCOUNTER → 2025-03-08 12:25 | Outpatient (REF) | payer MEDICARE, BC, SELFPAY | LOC: HWRAD 12:25 | PROVIDERS: ATTENDING PHYSICIAN Internal Medicine Critical Care Medicine; FAMILY PHYSICIAN Family Medicine | DX: R91.1 Solitary pulmonary nodule (principal) | CPT/HCPCS: 71250 ==

== ENCOUNTER → 2025-04-27 14:56 | Outpatient (REF) | payer MEDICARE, BC, SELFPAY | LOC: HWRAD 14:56 | PROVIDERS: ATTENDING PHYSICIAN Family Medicine | DX: M54.2 Cervicalgia (principal); M15.0 Primary generalized (osteo)arthritis | CPT/HCPCS: 72050; 72110 ==

== ENCOUNTER → 2025-05-14 12:40 | Outpatient (REF) | payer MEDICARE, BC, SELFPAY | LOC: RAD 12:40 | PROVIDERS: ATTENDING PHYSICIAN Surgery Vascular Surgery; FAMILY PHYSICIAN Family Medicine | DX: I73.9 Peripheral vascular disease, unspecified (principal) | CPT/HCPCS: 93922; 93925 ==

== ENCOUNTER → 2025-06-04 11:03 | Outpatient (REF) | payer MEDICARE, BC, SELFPAY | LOC: HWRAD 11:03 | PROVIDERS: ATTENDING PHYSICIAN Radiology Radiation Oncology; FAMILY PHYSICIAN Family Medicine; OTHER PHYSICIAN Surgery Vascular Surgery; REFERRING PHYSICIAN Internal Medicine Critical Care Medicine | DX: R91.1 Solitary pulmonary nodule (principal) | CPT/HCPCS: 71250 ==

== ENCOUNTER → 2025-06-21 10:25 | Outpatient (REF) | payer MEDICARE, BC, SELFPAY | LOC: RAD 10:25 | PROVIDERS: ATTENDING PHYSICIAN Surgery Vascular Surgery; FAMILY PHYSICIAN Family Medicine | DX: I73.9 Peripheral vascular disease, unspecified (principal) | CPT/HCPCS: 75635; Q9967 ==